=== PATIENT | female | born 1960 | race Caucasian/White ===

== ENCOUNTER 2017-09-03 11:45 | Emergency (ER) | payer OTHER ==
[2017-09-03 12:11] VITALS: BP 124/71
--- NOTE | 2017-09-03 13:18 | RAD ---
INDICATION: Right knee pain after running COMPARISON: None TECHNIQUE: 4 view radiograph of the right knee. FINDINGS: The visualized bones are well-corticated and properly aligned. The joint spaces are properly maintained. There is a small suprapatellar joint effusion.. There is no acute fracture, dislocation or other focal bony abnormality. IMPRESSION: Small joint effusion without radiographically apparent bony abnormality. If the patient's symptoms persist, follow-up imaging is recommended.
--- NOTE | 2017-09-03 13:55 | UC ---
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 PAIN RADIATES FROM FRONT OF KNEE TO BACK. - History of Current Complaint Chief Complaint: UCLowerExtremity Stated Complaint: KNEE PAIN Time Seen by Provider: 09/03/17 12:32 Hx Obtained From: Patient, Family/Hospital Librarian Onset/Duration: Gradual Onset, Lasting Days, Worse Since - TODAY Severity Initially: Mild Severity Currently: Moderate Character: Dull, Aching Aggravating Factor(s): Weight Bearing, Prolonged Standing, Stairs Alleviating Factor(s): Position Associated Signs And Symptoms: Positive: Negative Able to Bear Weight: Yes - WITH PAIN - Risk Factors Septic Arthritis Risk Factor: Negative Gout Risk Factor: Negative - Allergies/Home Medications Allergies/Adverse Reactions: Allergies Allergy/AdvReac Type Severity Reaction Status Date / Time Amoxicillin Allergy Rash Verified 09/03/17 12:08 Codeine Allergy Unknown Verified 09/03/17 12:08 Reaction Details Home Medications: Home Medications NK [No Home Medications Reported] 09/03/17 [History Confirmed 09/03/17] PMH/Surg Hx/FS Hx/Imm Hx Previously Healthy: Yes - Surgical History Surgical History: Yes Surgery Procedure, Year, and Place: bariatric surgery- 1 year ago - Family History Known Family History: Negative: Other - NO JOINT LAXITY - Social History Occupation: Employed Full-time Lives: With Family Alcohol Use: Weekly Substance Use Type: None Smoking Status (MU): Never Smoked Tobacco - Immunization History Most Recent Influenza Vaccination: unknown Review of Systems Constitutional: Negative Skin: Negative Eyes: Negative ENT: Negative Respiratory: Negative Cardiovascular: Negative Gastrointestinal: Negative Genitourinary: Negative Motor: Negative Neurovascular: Negative Musculoskeletal: Arthralgia, Myalgia Neurological: Negative Psychological: Negative Is Patient Immunocompromised?: No All Other Systems Reviewed And Are Negative: Yes Physical Exam Triage Information Reviewed: Yes Appearance: Well-Appearing, Well-Nourished, Pain Distress Vital Signs: Initial Vital Signs Temp 99.1 F 09/03/17 12:04 Pulse 50 09/03/17 12:04 Resp 16 09/03/17 12:04 BP 124/71 09/03/17 12:04 Pulse Ox 96 09/03/17 12:04 Vital Signs Reviewed: Yes Eye Exam: Normal ENT Exam: Normal ENT: Positive: Normal ENT inspection, Hearing grossly normal, Pharynx normal Dental Exam: Normal Neck exam: Normal Neck: Positive: Supple, Nontender, No Lymphadenopathy Respiratory Exam: Normal Respiratory: Positive: Chest non-tender, Lungs clear, Normal breath sounds, No respiratory distress, No accessory muscle use Cardiovascular Exam: Normal Cardiovascular: Positive: RRR, No Murmur, Pulses Normal, Brisk Capillary Refill Abdominal Exam: Normal Musculoskeletal: Positive: ROM Intact, Strength Limited @ - RIGHT KNEE, Edema @ - MILD EDEMA RIGHT KNEE, Other: - POSITIVE LEONILA TEST LOCALIZED TO LATERAL SIDE. NEGATIVE ANTERIOR/POSTERIOR DRAWER TEST Psychological Exam: Normal Skin Exam: Normal Knee Pain Course/Dx - Differential Dx/Diagnosis Differential Diagnosis/HQI/PQRI: Fracture (Closed), Internal Derangement Of Knee , Sprain, Strain Provider Diagnoses: RIGHT KNEE JOINT EFFUSION, INTERNAL INJURY Discharge - Discharge Plan Condition: Stable Disposition: HOME Patient Education Materials: Swollen Knee Joint (ED), Knee Pain (ED) Forms: *Work Release Referrals: Bart Gay MD [Medical Doctor] - Non Staff,Doctor [Primary Care Provider] - Additional Instructions: PHYSICAL THERAPY REFERRAL: You have been prescribed physical therapy. Treatments may include stretching, exercise, application of heat or cold, and other modalities. After an injury, PT can reduce swelling and pain. In recovery, PT is used to restore mobility and strength. Your specific treatment goals are: __x___ Reduction of Swelling (EGS, US, ice as needed) _x____ Pain Reduction (EGS, US, ice as needed) ___x__ TENS Pack Fitting and Instruction Wound Hydrotherapy __x__ Preservation of Mobility ___x__ Druze of Mobility ___x__ Strength Druze ___x__ Work or Sports Hardening This instruction sheet also serves as your PHYSICAL THERAPY REFERRAL! Please take it with you to the therapist, so he/she will be aware of your diagnosis and treatment plan. You may see the physical therapist of your choice for these treatments, but may wish to check with your insurance to be sure the provider you select is covered. It's important to see the doctor to whom you have been referred for follow up.
== END 2017-09-03 13:59 | disposition home or self-care (01) ==
LOC: UCEAST 11:45
DX: M25.461 Effusion, right knee (principal); S89.81XA Other specified injuries of right lower leg, initial encounter; X50.0XXA Overexertion from strenuous movement or load, initial encounter; Y93.9 Activity, unspecified; Y93.02 Activity, running; Y92.9 Unspecified place or not applicable; Y99.9 Unspecified external cause status
CPT/HCPCS: 99213; G0463

== ENCOUNTER 2017-11-21 19:44 | Emergency (ER) | payer BC, OTHER ==
[2017-11-21 19:54] VITALS: BP 140/91
[2017-11-21] MEDS ORDERED: Ondansetron ODT TAB* 4 MG PO ONE (21:07)
[2017-11-21] MEDS ORDERED: Oseltamivir CAP* 75 MG CAP PO ONE (21:09)
--- NOTE | 2017-11-21 21:17 | UC ---
Pablito Dong Gabriel, scribed for Maximino Bonner MD on 11/21/17 at 2030 . FLU HPI - HPI Summary HPI Summary: This patient is a 57 year old F presenting to [facility] [place] with a chief complaint of flu like illness since this morning. The patient rates the pain 4/10 in severity. Patient reports body aches, diarrhea, fever, ROMANO, decreased appetite, light headed on standing, and nausea. Patient denies ear pain and dysuria. 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 Onset/Duration: Lasting Days, Still Present Severity Currently: Moderate Severity Initially: Moderate Pain Intensity: 4 Pain Scale Used: 0-10 Numeric Associated Signs & Symptoms: Positive: Fever, Myalgia, Headache, Diarrhea - Allergy/Home Medications Allergies/Adverse Reactions: Allergies Allergy/AdvReac Type Severity Reaction Status Date / Time amoxicillin Allergy Rash Verified 11/21/17 19:48 codeine Allergy Unknown Verified 11/21/17 19:48 Reaction Details Home Medications: Home Medications Ibuprofen TAB* [Advil TAB*] 200 mg PO Q6H PRN 11/21/17 [History Confirmed ] Multivitamin,Ther and Minerals [Multi-Vitamin Hp/Minerals] 1 cap PO DAILY [History Confirmed 11/21/17] PMH/Surg Hx/FS Hx/Imm Hx Previously Healthy: Yes Other History Of: Negative For: Hepatitis C, Anticoagulant Therapy - Surgical History Surgical History: Yes Surgery Procedure, Year, and Place: bariatric surgery- 2015. removal of foreign body part, 1974 - Family History Known Family History: Negative: Hypertension, Diabetes, Renal Disease, Respiratory Disease, Seizure Disorder, Other - CVA, cance r - Social History Alcohol Use: Weekly Substance Use Type: None Smoking Status (MU): Former Smoker - Immunization History Most Recent Influenza Vaccination: unknown Review of Systems Constitutional: Fever Gastrointestinal: Diarrhea, Nausea Musculoskeletal: Myalgia Neurological: Headache, Other - light headed All Other Systems Reviewed And Are Negative: Yes Physical Exam Triage Information Reviewed: Yes Vital Signs: Initial Vital Signs Temp 100.0 F 11/21/17 19:49 Pulse 83 11/21/17 19:49 Resp 16 11/21/17 19:49 BP 140/91 11/21/17 19:49 Pulse Ox 97 11/21/17 19:49 Vital Signs Reviewed: Yes - Additional Comments General: mildly ill appearing, no pain distress Skin: warm, color reflects adequate perfusion, dry Head: normal Eyes: EOMI, BARBARA ENT: normal Neck: supple, nontender Respiratory: CTA, breath sounds present Cardiovascular: RRR Abdomen: soft, nontender Bowel: present Musculoskeletal: normal, strength/ROM intact Neurological: normal, sensory/motor intact, A&O x3 Psychological: affect/mood appropriate Flu Course/Dx - Course Course Of Treatment: BP noted and advised to follow up with PCP. WILL TREAT INFLUENZA DUE TO SX. F/U PMD; RECHECK IF WORSE. - Differential Dx/Diagnosis Provider Diagnoses: INFLUENZA LIKE ILLNESS. Elevated blood pressure without a previous diagnosis of hypertension Discharge - Discharge Plan Condition: Stable Disposition: HOME Prescriptions: Ondansetron ODT TAB* [Zofran 4 MG Odt TAB*] 4 mg PO Q6H PRN #10 tab.odt PRN Reason: Nausea Oseltamivir CAP* [Tamiflu CAP*] 75 mg PO BID #9 cap Patient Education Materials: Influenza (ED) [place] [facility] [place] [facility] [Outside] Additional Instructions: FOLLOW UP WITH YOUR DOCTOR. GET RECHECKED FOR ANY WORSENING OF YOUR CONDITION OR QUESTIONS OR CONCERNS. Your blood pressure was elevated during today's visit. Please follow up with your primary care provider in 1-2 weeks. The documentation as recorded by the Pablito lancaster Gabriel accurately reflects the service I personally performed and the decisions made by me, Maximino Bonner MD.
== END 2017-11-21 21:30 | disposition home or self-care (01) ==
LOC: UCEAST 19:44
DX: R03.0 Elevated blood-pressure reading, without diagnosis of hypertension (principal); Z87.891 Personal history of nicotine dependence; J11.1 Influenza due to unidentified influenza virus with other respiratory manifestations
CPT/HCPCS: 87502; 99212; A9270-GY; G0463

== ENCOUNTER 2018-09-13 18:49 | Emergency (ER) | payer BC, OTHER ==
--- OUTSIDE RECORDS SUMMARY | 2018-09-13 18:54 | XMS REPORT | Continuity of Care Document ---
:1960 External Reference #:[id number] Author Name Daysi Ansari Care Team Providers Name Role Phone Jennifer Zeng MD Primary Care Physician Unavailable Payers Type Date Identification Numbers Payment Provider Subscriber Policy Number: [id number] [facility] Steph Gutierrez Group Name: [id number] [address] PayID: [id number] [place] [address] Policy Number: [id number] [facility] Steph Gutierrez PayID: [id number] [address] [place] [address] Advance Directives Description No Information Available Problems Date Description Provider Status Onset: 05/11/2017 Obstructive sleep apnea Glenda Steele DNP, RN, Active syndrome 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 Onset: 05/11/2017 Body mass index 30+ - obesity Glenda Steele DNP, RN, 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 Family History Date Family Member(s) Problem(s) Comments General MGP strokes,bowel obstruction;MGM Alzheimer's General PGF strokes, aneurysms; PGM Alzheimer's Father In good health ; had colon cancer, is survivor Father due to Pancreatic Cancer () Mother Sleep Apnea Mother due to Alzheimer's Disease () Mother Alzheimer's ; Siblings 5 Siblings All healthy Social History Type Date Description Comments Sex Unknown Marital Status Lives With Occupation Currently Working Tobacco Use Start: Unknown 1 year ago 01/2014 Quit ETOH Use Occasionally consumes alcohol Tobacco Use Start: Unknown End: Patient is a former smoker Unknown Recreational Drug Use Never Used Drugs Tobacco Use Start: Unknown Light tobacco smoker (10 or fewer cigarettes/day) Smoking Status Reviewed: 09/13/18 Light tobacco smoker (10 or fewer cigarettes/day) Exercise Type/Frequency Exercises regularly Allergies, Adverse Reactions, Alerts Date Description Reaction Status Severity Comments 03/12/2015 Codeine Active 03/12/2015 Amoxicillin Active Rash Medications Medication Date Status Form Strength Qnty SIG Indications Ordering Provider Pravastatin 03/11/20 Active Tablets 40mg 1 tablet Unknown Sodium 15 daily at bedtime Bioflex Active Unknown 00 Multi-Vitamin Active Unknown 00 Evening Active Unknown [place] Oil 00 Atenolol-Chlort 03/11/20 Hx Tablets 50-25mg 1 by mouth Unknown halidone 15 - every day 05/10/20 17 Immunizations Description No Information Available Vital Signs Date Vital Result Comment 09/13/2018 3:46pm Height 63 inches 5'3" Weight 166.00 lb BP Systolic 140 mmHg BP Diastolic 90 mmHg Respiratory Rate 16 /min Body Temperature 98.5 F Pain Level 4 BMI (Body Mass Index) 29.4 kg/m2 07/14/2018 10:11am Height 63 inches 5'3" Weight 165.00 lb Heart Rate 72 /min regular BP Systolic Sitting 158 mmHg Lue reg cuff BP Diastolic Sitting 88 mmHg Lue reg cuff Respiratory Rate 16 /min BMI (Body Mass Index) 29.2 kg/m2 05/11/2017 10:09am Height 63 inches 5'3" Weight 175.00 lb Heart Rate 52 /min BP Systolic Sitting 128 mmHg BP Diastolic Sitting 78 mmHg Respiratory Rate 14 /min O2 % BldC Oximetry 96 % BMI (Body Mass Index) 31.0 kg/m2 07/24/2015 10:10am Heart Rate 65 /min BP Systolic Sitting 124 mmHg BP Diastolic Sitting 70 mmHg O2 % BldC Oximetry 95 % 05/16/2015 10:01am Height 63 inches 5'3" Weight 240.00 lb Heart Rate 49 /min BP Systolic Sitting 120 mmHg BP Diastolic Sitting 68 mmHg Respiratory Rate 20 /min O2 % BldC Oximetry 97 % BMI (Body Mass Index) 42.5 kg/m2 03/12/2015 2:37pm Height 63 inches 5'3" Weight 243.12 lb Heart Rate 82 /min BP Systolic Sitting 112 mmHg BP Diastolic Sitting 54 mmHg Respiratory Rate 20 /min Body Temperature 97.4 F O2 % BldC Oximetry 98 % BMI (Body Mass Index) 43.1 kg/m2 Neck Circumference in inches 15.5 Results Description No Information Available Procedures Date Code Description Status 05/26/2018 44713 Biopsy Skin Lesion Single Completed 05/01/2015 39355 Polysomnography Sleep Staging 4+ Parameters W/Cpap Completed Encounters Type Date Location Provider Dx Diagnosis Office Visit 09/13/2018 [facility] [place], G56.01 Carpal tunnel 3:15p [facility] Peralta syndrome, right upper limb G56.21 Lesion of ulnar nerve, right upper limb Office Visit 07/14/2018 Pul[facility]ology And Glenda G47.33 Obstructive sleep 9:45a [facility] Steele RN, apnea (adult) [facility]- (pediatric) Z68.29 Body mass index (BMI) 29.0-29.9, adult Office Visit 06/02/2018 10:00a [facility] Yessi Oleary MD B07.8 Other viral warts L82.1 Other seborrheic keratosis 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 [Cuauhtemoc] Office Visit 05/26/2018 [facility] Yessi Oleary, D18.01 Hemangioma of skin 7:40a MD and subcutaneous tissue L82.1 Other seborrheic keratosis R21 Rash and other nonspecific skin eruption Office Visit 05/11/2017 [facility] Glenda G47.33 Obstructive sleep 10:00a [facility] Steele RN, apnea (adult) [facility]- (pediatric) E66.9 Obesity, unspecified Z68.31 Body mass index (BMI) 31.0-31.9, adult Office Visit 07/24/2015 10:00a Pul[facility]ology And Jason David G47.33 Obstructive sleep [facility] Kathryn apnea (adult) [facility] (pediatric) I10 Essential (primary) hypertension Office Visit 05/16/2015 10:15a [facility] And Jason David, 327.23 Obstructive Sleep [facility] Apnea Adult & [facility] Pediatric 401.9 Hypertension Unspec Office Visit 03/12/2015 2:30p Pul[facility] Jason David 327.23 Obstructive Sleep [facility] Apnea Adult & [facility] Pediatric 401.9 Hypertension Unspec Plan of Treatment Future Appointment(s):10/16/2018 8:00 am - Con[facility] [place] M.D. at [facility]07/20/2019 8:15 am - Glenda Steele DNP, RN, 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 at [facility]09/13/2018 - Conchis Nj M.D.G56.01 Carpal tunnel syndrome, right upper limbFollow up:Follow up: 9-10 days [id number] Lesion of ulnar nerve, right upper limb
--- NOTE | 2018-09-13 20:48 | UC ---
Lower Extremity/Ankle HPI - HPI Summary HPI Summary: 58 y/o female presents to the urgent care c/o left knee pain s/p injury after her dog jumped into her knee and her leg gave away around 1700pm. Pain is severe w/ weight bearing 8/10. Pain is sharp if she tries to stand up. It radiates to her left hip and then goes down her foot and associated w/ mild swelling around left knee. Pt denies any previous injury. Pt has not taking anything for pain, Pt denies any numbness or tingling sensation over the knee of left leg, fever, calf pain, SOB, chest pain, abdominal pain, N/v/D. 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 Onset/Duration: Sudden Onset, Lasting Hours - 3hrs, Still Present Severity Initially: Moderate Severity Currently: Moderate Pain Intensity: 8 Pain Scale Used: 0-10 Numeric Aggravating Factor(s): Standing, Ambulation Alleviating Factor(s): Rest, Elevation Able to Bear Weight: No - Risk Factors Gout Risk Factors: Negative DVT Risk Factors: Negative Septic Arthritis Risk Factor: Negative - Allergies/Home Medications Allergies/Adverse Reactions: Allergies Allergy/AdvReac Type Severity Reaction Status Date / Time amoxicillin Allergy Rash Verified 09/13/18 19:12 codeine Allergy Unknown Verified 09/13/18 19:12 Reaction Details Home Medications: Home Medications Juliette Peru/Linoleic/Gamoleni [Evening [place] 1,000 mg Sftg] 1,000 mg PO DAILY 09/13/18 [History Confirmed 09/13/18] Rutin/Hesp/Bioflav/C/[id number] [Bioflex Tablet] 1 tab PO DAILY 09/13/18 [ History Confirmed 09/13/18] PMH/Surg Hx/FS Hx/Imm Hx Previously Healthy: Yes Cardiovascular History: Hypertension - diet control Other History Of: Negative For: Hepatitis C, Anticoagulant Therapy - Surgical History Surgical History: Yes Surgery Procedure, Year, and Place: bariatric surgery- 2016. removal of foreign body part, 1974 - Family History Known Family History: Positive: Hypertension Negative: Diabetes, Renal Disease, Respiratory Disease, Seizure Disorder, Other - CVA, cance r - Social History Occupation: Employed Full-time Lives: With Family Alcohol Use: Occasionally Substance Use Type: None Smoking Status (MU): Former Smoker - Immunization History Most Recent Influenza Vaccination: unknown Review of Systems All Other Systems Reviewed And Are Negative: Yes Constitutional: Positive: Negative Skin: Positive: Other - left knee mild swelling s/p injury Eyes: Positive: Negative ENT: Positive: Negative Respiratory: Positive: Negative Cardiovascular: Positive: Negative Gastrointestinal: Positive: Negative Genitourinary: Positive: Negative Motor: Positive: Negative Neurovascular: Positive: Negative Musculoskeletal: Positive: Decreased ROM - left knee, Other: - left knee pain s/ p injury Neurological: Positive: Negative Psychological: Positive: Negative Is Patient Immunocompromised?: No Physical Exam - Summary Physical Exam Summary: Vital Signs Reviewed: Yes General: well developed, well nourished female sitting in the examining table w/ o any apparent distress Eyes: Positive: Conjunctiva Clear - PERRLA, EOMI, fundi grossly normal ENT: Positive: Normal ENT inspection, Hearing grossly normal, Pharynx normal, TMs normal Neck: Positive: Supple, Nontender, No Lymphadenopathy Respiratory: Positive: Chest nontender, Lungs clear, Normal breath sounds, No respiratory distress Cardiovascular: Positive: RRR, No Murmur, Pulses Normal, Brisk Capillary Refill Abdomen Description: Positive: Nontender, No Organomegaly, Soft. Negative: CVA Tenderness (R), CVA Tenderness (L) Bowel Sounds: Positive: Present Musculoskeletal: Positive: Strength Intact, No Edema, Left Knee: Pt is unable to bear weight. No surface trauma, mild soft tissue swelling around patella, no obvious effusion. No overlying erythema or warmth. The L knee is without obvious asymmetry or deformity when compared with the R knee. Decreased ROM of LF knee due to pain. tenderness to palpation of the patella, no effusion or ballottement. tenderness over the infrapatellar tendon. Point tenderness over the medial joint line, No tenderness over the medial or lateral tibial plateaus. No tenderness over the proximal fibular head, No tenderness, fullness or mass of the popliteal fossa. No quadriceps tenderness. No laxity of the ACL. PCL, MCL, or LCL. no collateral ligament laxity to valgus or varus stress. Negative Claudia/Drawer sign. Ashley unable to perform due to pain. Distal motor and neurovascular status intact. Neurological Exam: Normal Psychological Exam: Normal Skin Exam: Normal Triage Information Reviewed: Yes Vital Signs: Initial Vital Signs Temp 100.0 F 09/13/18 19:07 Pulse 72 09/13/18 19:07 Resp 16 09/13/18 19:07 BP 141/84 09/13/18 19:07 Pulse Ox 100 09/13/18 19:07 Lower Extremity Course/Dx - Course Course Of Treatment: 58 y/o female presents to the urgent care c/o left knee pain s/p injury after her dog jumped into her knee and her leg gave away around 1700pm. Pain is severe w/ weight bearing 05/12. Pain is sharp if she tries to stand up. It radiates to her left hip and then goes down her foot and associated w/ mild swelling around left knee. Pt denies any previous injury. Pt has not taking anything for pain, Pt denies any numbness or tingling sensation over the knee of left leg, fever, calf pain, SOB, chest pain, abdominal pain, N/ v/D. hx obtained. LF knee X-ray ordered. Impression:No acute osseous injury, Positive Osteoarthritis seen over the patella and a small needle observed over the lateral aspect of the distal thigh as incidental finding. Pt states she got a sawing needle in her thigh about 20 years ago and only half of the needle was taken out, the other half still present, but it has never bother her. Pt probrably w/ a knee prain. Pt's knee immobilized w/ la bandage and Knee immobilizer by the Nurse. and advised to avoid weight bearing by using the cruthes she has at home.Advised RICE. Avoid strenuous exercise or standing for long period of time. Pt advised to f/u with Orthopedic Dr Hooper in 2-3 days for further evaluation and treatment. D/C instructions explained. Pt understood and agreed with D/C instructions. - Differential Dx/Diagnosis Differential Diagnosis/HQI/PQRI: Arthritis, Contusion, Fracture (Closed), Sprain , Strain, Tendonitis Provider Diagnosis: Left knee pain, Left knee sprain, Osteoarthritis, Elevated BP without diagnosis of hypertension Discharge - Sign-Out/Discharge Documenting (check all that apply): Patient Departure - d/c home All imaging exams completed and their final reports reviewed: No - Discharge Plan Condition: Stable Disposition: HOME Patient Education Materials: Knee Sprain (ED), Osteoarthritis (ED), Low-Sodium Diet (ED) Forms: *Work Release Referrals: Jennifer Zeng MD [Primary Care Provider] - 2 Days Rodrick Hooper MD [Medical Doctor] - 2 Days Additional Instructions: 1-Please take Ibuprofen PO q6-8hrs after meals as directed to alleviate pain and swelling. Start tomorrow night since you were given Toradol IM inj today. In the meantime you can take Tylenol PO for pain. 2-Please apply ice, keep your knee immobilized with the Knee inmobilizer. Use the crutches you have at home to avoid weight bearing. Keep you leg elevated 3- Please f/u with Orthopedic Dr Hooper in 2-3 days for further evaluation and treatment. 4- Your BP is elevated today. please decrease salt in your diet, monitor BP and if it continues to be elevated please f/u with your PCP for further management 5- final radiology report still pending, you will be notified tomorrow. - Billing Disposition and Condition Condition: STABLE Disposition: Home
[2018-09-13] MEDS ORDERED: Ketorolac INJ* 30 MG/ML 1 ML VIAL IM ONE (21:01)
[2018-09-13 22:33] VITALS: BP 124/78
--- NOTE | 2018-09-14 09:59 | UC ---
- Progress Note Progress Note: X-ray reports for the left knee from September 13, 2018 comes back with a reading of joint effusion mild osteoarthritis and an incidental needle fragment within the hamstring musculature above the knee joint. The provider's interpretation did not mention these items. In the report from September 13, 2018. The plan is to follow-up with orthopedics. I called the patient and left a message asking her to call us back here to urgent care to discuss the report. As long as the patient does follow-up with orthopedics everything is taking care of that he is not following up with orthopedic she does need to do that. Course/Dx - Diagnoses Provider Diagnoses: Left knee pain, Left knee sprain, Osteoarthritis, Elevated BP without diagnosis of hypertension Discharge - Sign-Out/Discharge Documenting (check all that apply): Patient Departure All imaging exams completed and their final reports reviewed: Yes - Discharge Plan Condition: Stable Disposition: HOME Patient Education Materials: Knee Sprain (ED), Osteoarthritis (ED), Low-Sodium Diet (ED) Forms: *Work Release Referrals: Rodrick Hooper MD [Medical Doctor] - 2 Days Jennifer Zeng MD [Primary Care Provider] - 2 Days Additional Instructions: 1-Please take Ibuprofen PO q6-8hrs after meals as directed to alleviate pain and swelling. Start tomorrow night since you were given Toradol IM inj today. In the meantime you can take Tylenol PO for pain. 2-Please apply ice, keep your knee immobilized with the Knee inmobilizer. Use the crutches you have at home to avoid weight bearing. Keep you leg elevated 3- Please f/u with Orthopedic Dr Hooper in 2-3 days for further evaluation and treatment. 4- Your BP is elevated today. please decrease salt in your diet, monitor BP and if it continues to be elevated please f/u with your PCP for further management 5- final radiology report still pending, you will be notified tomorrow. - Billing Disposition and Condition Condition: STABLE Disposition: Home
--- NOTE | 2018-09-14 10:52 | UC ---
- Progress Note Progress Note: Nursing this cussed with the patient the x-ray results and the patient reports she has a follow-up scheduled this week with Dr. Hooper orthopedics. Course/Dx - Diagnoses Provider Diagnoses: Left knee pain, Left knee sprain, Osteoarthritis, Elevated BP without diagnosis of hypertension Discharge - Sign-Out/Discharge Documenting (check all that apply): Patient Departure All imaging exams completed and their final reports reviewed: Yes - Discharge Plan Condition: Stable Disposition: HOME Patient Education Materials: Knee Sprain (ED), Osteoarthritis (ED), Low-Sodium Diet (ED) Forms: *Work Release Referrals: Rodrick Hooper MD [Medical Doctor] - 2 Days Jennifer Zeng MD [Primary Care Provider] - 2 Days Additional Instructions: 1-Please take Ibuprofen PO q6-8hrs after meals as directed to alleviate pain and swelling. Start tomorrow night since you were given Toradol IM inj today. In the meantime you can take Tylenol PO for pain. 2-Please apply ice, keep your knee immobilized with the Knee inmobilizer. Use the crutches you have at home to avoid weight bearing. Keep you leg elevated 3- Please f/u with Orthopedic Dr Hooper in 2-3 days for further evaluation and treatment. 4- Your BP is elevated today. please decrease salt in your diet, monitor BP and if it continues to be elevated please f/u with your PCP for further management 5- final radiology report still pending, you will be notified tomorrow. - Billing Disposition and Condition Condition: STABLE Disposition: Home
== END 2018-09-13 22:31 | disposition home or self-care (01) ==
LOC: UCEAST 18:49
DX: S83.92XA Sprain of unspecified site of left knee, initial encounter (principal); Y93.89 Activity, other specified; Y92.9 Unspecified place or not applicable; M17.12 Unilateral primary osteoarthritis, left knee; R03.0 Elevated blood-pressure reading, without diagnosis of hypertension; I10 Essential (primary) hypertension; Z88.5 Allergy status to narcotic agent; Z88.0 Allergy status to penicillin; Z87.891 Personal history of nicotine dependence
CPT/HCPCS: 96372; 99213; G0463; J1885

== ENCOUNTER 2018-10-06 09:03 | Day surgery (SDC) | payer BC, OTHER ==
--- NOTE | 2018-09-21 15:55 | HP ---
PREOPERATIVE HISTORY AND PHYSICAL: DATE OF SURGERY/ADMISSION: 10/06/18 DATE OF OFFICE VISIT/ENCOUNTER: 09/13/18 ATTENDING SURGEON: Conchis Nj MD.* (DICTATED BY RUBIO LOVING) PROCEDURE: Right wrist carpal tunnel release, ulnar nerve decompression at the wrist and elbow. CHIEF COMPLAINT: Numbness and tingling in right hand. HISTORY OF PRESENT ILLNESS: This is a 58-year-old female who complains of numbness and tingling in her right hand. This has been ongoing for 20 years. It has gradually gotten worse. She wears braces at night, but that is not helping as much as it used to. She feels a lot of numbness in her forearm on the ulnar aspect and also numbness and tingling in all of her fingers. She denies any neck pain. She has consented to surgical intervention for this problem. PAST MEDICAL HISTORY: Sleep apnea with a CPAP. PAST SURGICAL HISTORY: 1. Right leg surgery to remove a foreign object. 2. Gastric bypass. 3. Left foot surgery. CURRENT MEDICATIONS: 1. Bioflex. 2. Evening primrose oil. 3. Multivitamin. ALLERGIES: AMOXICILLIN causes hives. CODEINE, reaction is unknown. FAMILY MEDICAL HISTORY: Pancreatic cancer, Alzheimer's, hypertension. 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 She is a former smoker. She quit about 5 years ago. Prior to that, she smoked a half to a pack per day for 30 plus years. She denies recreational drug use. She drinks alcohol on rare occasion. REVIEW OF SYSTEMS: Negative for general, cephalic, cardiovascular, respiratory , GI, , other musculoskeletal, integumentary, endocrine, neurologic, and hematologic symptoms. Infections disease is negative for MRSA, hepatitis C, HIV. PHYSICAL EXAMINATION GENERAL: A well-developed, well-nourished, 58-year-old female, in no acute distress. VITAL SIGNS: Height 5 feet 3 inches, weight 166 pounds, blood pressure 126/80, pulse rate 72. HEENT: Normocephalic, atraumatic. Pupils are equal, round, and reactive to light and accommodation. Extraocular movements are intact. NECK: Supple. No palpable lymph nodes. Throat is clear. PULMONARY: Lungs are clear to auscultation bilaterally. No wheezes, rales, or rhonchi. CARDIOVASCULAR: Regular rate and rhythm. S1 and S2. No murmurs, rubs, or gallops. No edema. ABDOMEN: Positive bowel sounds, soft, and nontender. NEUROLOGIC: Alert and oriented x3. Cranial nerves II through XII are intact. Sensation is intact to light touch. MUSCULOSKELETAL: On exam of her right upper extremity, she has marked thenar wasting on the right compared to the left. She has a lot of weakness with thumb abduction, a little bit of weakness with finger abduction, both on the right. She has decreased sensation in her median and ulnar nerve distribution on the right. She has a positive Tinel sign at the ulnar nerve, elbow, and wrist and a positive Tinel's at the median nerve. IMPRESSION: Right carpal tunnel syndrome and ulnar nerve compression at the elbow and the wrist. PLAN: The patient is scheduled to undergo a right wrist carpal tunnel release and an ulnar nerve decompression at the wrist and elbow with Dr. Nj on . She will return to the office 10 days postop for followup and suture removal. A prescription for Delano was e-scribed to the patient's pharmacy for postoperative pain management. RUBIO LOVING [id number]/[facility] #: [id number] MTDVipul
[~2018-10-06 09:03] MED LIST: Buffered Lidocaine 0.9% SYRIN* 5 ML/SYR SYRINGE INTRADERM ONE; Dexamethasone IV* 4 MG/ML 1 ML (4 MG) IV SLOW PU ONE; Dexamethasone IV* 4 MG/ML 1 ML (4 MG) ONE; Famotidine IV* 10 MG/ML 2 ML (20 mg) IV ONE; Famotidine IV* 10 MG/ML 2 ML (20 mg) ONE; Lactated Ringers 1000 ML Bag* 1,000 ML IV SCH
[2018-10-06] MEDS ORDERED: Clindamycin 900 MG/D5W BAG(*) 900 MG/50 ML BAG IVPB ONE (09:11)
[2018-10-06] MEDS ORDERED: Lidocaine 1% INJ* 10 MG/ML 30 ML SDV ONE (09:34)
[2018-10-06] MEDS ORDERED: Lidocaine 2% PF * 5 ML VIAL ONE (09:53)
[2018-10-06] MEDS ORDERED: Propofol* 10 MG/ML 20 ML BTL ONE (09:53)
[2018-10-06] MEDS ORDERED: fentaNYL* 50 MCG/ML 2 ML VIAL (100 MCG VIAL) ONE (09:58)
[2018-10-06] MEDS ORDERED: Midazolam* 1 MG/ML 2 ML VIAL (2 MG) ONE (09:58)
[2018-10-06] MEDS ORDERED: DiMENhydriNATE IV* 50 MG/ML VIAL IV PUSH PRN (10:10)
[2018-10-06] MEDS ORDERED: Naloxone* 0.4 MG/ML 1 ML VIAL IV PRN (10:10)
[2018-10-06] MEDS ORDERED: oxyCODONE/Acetamin 5/325 MG* TAB PO PRN (10:10)
[2018-10-06] MEDS ORDERED: fentaNYL* 50 MCG/ML 2 ML VIAL (100 MCG VIAL) IV PRN (10:10)
[2018-10-06] MEDS ORDERED: HYDROcodone/ACETAMIN 5-325 MG* 1 TAB PO PRN (10:10)
[2018-10-06] MEDS ORDERED: Ondansetron INJ* 2 MG/ML VIAL ONE (11:13)
[2018-10-06] MEDS ORDERED: HYDROcodone/ACETAMIN 5-325 MG* 1 TAB ONE (11:49)
[2018-10-06] MEDS ORDERED: DiMENhydriNATE IV* 50 MG/ML VIAL ONE (12:02)
[2018-10-06 13:04] VITALS: BP 111/68
--- NOTE | 2018-10-06 21:03 | OP ---
DATE OF OPERATION: 10/06/18 - [facility] DATE OF : [birth year] SURGEON: Conchis Nj MD PAINTER HELPER SIGN: RUBIO Camacho ANESTHESIA: Local MAC. PRE-OP DIAGNOSES: Right carpal tunnel syndrome and ulnar nerve compression at the right elbow and right wrist. POST-OP DIAGNOSES: Right carpal tunnel syndrome and ulnar nerve compression at the right elbow and right wrist. OPERATIVE PROCEDURE: Right carpal tunnel release and ulnar nerve decompression at the wrist and elbow. ESTIMATED BLOOD LOSS: Zero. TOURNIQUET TIME: Approximately 30 minutes. INDICATION FOR PROCEDURE: Steph is a 58-year-old female who has numbness and tingling in the median and ulnar nerve distribution of the right hand. She presents for ulnar nerve decompression of the wrist and elbow, as she has a positive Tinel's sign at both sites and also for right carpal tunnel release. DESCRIPTION OF PROCEDURE: The patient was brought to the operating room and was given a sedation anesthetic and a local infiltration of total of 20 cc of 1 % plain lidocaine, 10 at the wrist and 10 at the elbow. Skin of her right upper extremity was prepped and draped in the usual sterile fashion. The upper extremity was exsanguinated and the tourniquet elevated to 250 mmHg. A curvilinear incision was made centered between the medial epicondyle and the tip of the olecranon process. We dissected bluntly through the subcutaneous tissue down to the ulnar nerve just proximal to the cubital tunnel. The nerve was carefully dissected out proximally and distally. The fascia of the FCU muscle was quite thickened and was divided completely releasing the nerve distally. Proximally, there was a thickened band of the medial intermuscular septum and this was also divided. The nerve was in good condition. The wound was irrigated and the subcutaneous tissue closed with 2-0 Polysorb. The skin edges were reapproximated with rob. Next, a longitudinal incision was made in the palm in line with the ring finger and then in zigzag fashion across the wrist crease, dissected sharply through the subcutaneous tissue down to the transverse carpal ligament. The ligament was divided sharply with the knife and then more proximally with the scissors. This nerve was dissected free from the surrounding tissue and there was an area of moderate compression at the midportion of the ligament. The ulnar nerve was then located in the distal forearm proximal to the wrist crease and then was carefully dissected out through Guyon's canal. There was a very thickened portion of Guyon's canal that was compressing the nerve. The wound was irrigated and skin edges reapproximated with 4-0 nylon suture. The wound was dressed with Xeroform, 4x4, Webril, and Jarrod wrap. The patient tolerated the procedure well and was brought to the Recovery in good condition. [id number]/[facility] #: [id number] PINKY
== END 2018-10-06 12:58 | disposition home or self-care (01) ==
LOC: OREAST 09:03
PROVIDERS: ATTEND Orthopaedic Surgery
DX: G56.01 Carpal tunnel syndrome, right upper limb (principal); G56.21 Lesion of ulnar nerve, right upper limb; G47.33 Obstructive sleep apnea (adult) (pediatric)
CPT/HCPCS: J1100; J1240; J2250; J2405; J2704; J3010

== ENCOUNTER 2019-02-08 17:16 | Emergency (ER) | payer BC, OTHER ==
--- OUTSIDE RECORDS SUMMARY | 2019-02-08 17:21 | XMS REPORT | Continuity of Care Document ---
:1960 External Reference #:[id number] Author Name Deisy Pappas Care Team Providers Name Role Phone Jennifer Zeng MD Primary Care Physician Unavailable Payers Date Identification Numbers Payment Provider Subscriber Policy Number: [id number] [facility] Steph Gutierrez Group Name: [id number] [address] [address] PayID: [id number] [place] [id number] Policy Number: [id number] [facility] Steph Gutierrez PayID: [id number] [address] [place] [address] Advance Directives Description No Information Available Problems Active Problems Provider Date Obstructive sleep apnea syndrome Glenda Steele DNP, RN, IMPORT CLERK- Onset: 06/2017 Body mass index 30+ - obesity Glenda Steele DNP, RN, IMPORT CLERK-BC Onset: 2016 Current tear of medial cartilage Adrian Ferrer MD Onset: 09/15/2018 AND/OR meniscus of knee Knee joint effusion Adrian Ferrer MD Onset: 09/15/2018 Synovial cyst of popliteal space Adrian Ferrer MD Onset: 11/17/2018 Family History Date Family Member(s) Observation Comments General MGP strokes,bowel obstruction;MGM Alzheimer's General [...] (10 or fewer cigarettes/day) Smoking Status Reviewed: 01/17/19 Light tobacco smoker (10 or fewer cigarettes/day) Exercise Type/Frequency Exercises regularly Allergies, Adverse Reactions, Alerts Active Allergies Reaction Severity Comments Date Codeine 03/12/2015 Amoxicillin Rash 03/12/2015 Medications Active Medications SIG Qnty Indications Ordering Provider Date Oxycodone HCL 1 tabs by mouth 10tabs Adrian Ferrer MD 01/04/2019 5mg every 4-6 hours Tablets as needed Tramadol HCL 1 tablet po bid 15tabs Adrian Ferrer MD 12/26/2018 50mg Tablets Pravastatin Sodium 1 tablet daily at Unknown 03/11/2015 40mg bedtime Tablets Bioflex Unknown Multi-Vitamin Unknown Evening [place] Oil Unknown History Medications Armstrong one tab by mouth 20tabs Conchis Nj, 09/21/2018 - 5-325mg every 4-6 hours M.D. 12/24/2018 Tablets as needed pain Atenolol-Chlorthal 1 by mouth every Unknown 03/11/2015 - idone day 05/10/2017 50-25mg Tablets Medications Administered in Office Medication SIG Qnty Indications Ordering Provider Date Triamcinolone (Kenalog) Adrian Ferrer MD 11/17/2018 Injection Immunizations Description No Information Available Vital Signs Date Vital Result Comment 01/17/2019 2:43pm Height 64 inches 5'4" Weight 170.00 lb BP Systolic 134 mmHg BP Diastolic 88 mmHg Body Temperature 98.7 F Pain Level 1 BMI (Body Mass Index) 29.2 kg/m2 12/25/2018 2:19pm Height 63 inches 5'3" BP Systolic 148 mmHg BP Diastolic 110 mmHg Respiratory Rate 15 /min Body Temperature 98.8 F Pain Level 9 11/17/2018 9:35am Height 63 inches 5'3" Weight 165.00 lb Patient stated Heart Rate 60 /min BP Systolic 124 mmHg BP Diastolic 90 mmHg Respiratory Rate 14 /min Pain Level 4 BMI (Body Mass Index) 29.2 kg/m2 11/13/2018 8:07am Height 63 inches 5'3" Heart Rate 60 /min BP Systolic 124 mmHg BP Diastolic 80 mmHg Respiratory Rate 12 /min Pain Level 1 10/30/2018 3:03pm Height 63 inches 5'3" Weight 172.00 lb Heart Rate 68 /min Respiratory Rate 15 /min Body Temperature 98.3 F Pain Level 5 BMI (Body Mass Index) 30.5 kg/m2 10/16/2018 8:14am Height 63 inches 5'3" Weight 172.00 lb BP Systolic 122 mmHg BP Diastolic 78 mmHg Body Temperature 98.7 F Pain Level 1 BMI (Body Mass Index) 30.5 kg/m2 09/15/2018 8:24am Height 63 inches 5'3" Weight 166.00 lb BP Systolic 126 mmHg BP Diastolic 80 mmHg Respiratory Rate 15 /min Body Temperature 97.9 F Pain Level 6 BMI (Body Mass Index) 29.4 kg/m2 09/13/2018 3:46pm Height 63 inches 5'3" Weight [...] Information Available Procedures Date Code Description Status 01/04/2019 51391 Arthroscopy,Knee,Meniscectomy Medial Or Lateral Completed 01/04/2019 01685 Arthroscopy,Knee,Meniscectomy Medial Or Lateral Completed 11/17/2018 98436 Inject/Drain Joint/Bursa Major W/O US Completed 10/06/2018 32665 Carpal Tunnel Release Completed 10/06/2018 97532 Carpal Tunnel Release Completed 10/06/2018 63914 Neuroplasty &/Or Transposition; Ulnar Nerve AT Elbow Completed 10/06/2018 76067 Neuroplasty &/Or Transposition; Ulnar Nerve AT Elbow Completed 05/26/2018 76290 Biopsy Skin Lesion Single Completed 05/01/2015 78023 Polysomnography Sleep Staging 4+ Parameters W/Cpap Completed Encounters Type Date Location Provider Dx Diagnosis Office Visit 12/25/2018 Rosario Ferrer, S83.222A Prph tear of 2:15p [facility], current injury, l knee, init M71.22 Synovial cyst of popliteal space [Root], left knee Office Visit 11/17/2018 9:30a Rosario Ferrer S83.222A Prph tear of [facility] phillip Moran meniscus, current injury, l knee, init M71.22 Synovial cyst of popliteal space [Root], left knee Office Visit 10/30/2018 3:30p Rosario Ferrer MD M25.562 [facility] in [facility] left knee M25.462 Effusion, left knee Office Visit 09/15/2018 8:00a Rosario Ferrer S83.222A Prph tear of [facility]ip Moran meniscus, current injury, l knee, init M25.462 Effusion, left knee M25.562 Pain in left knee Office Visit 09/13/2018 3:15p Orthopedic Conchis Nj G56.01 Carpal tunnel [facility] syndrome, right [facility] 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 [Cuauhtemoc] Office Visit 05/26/2018 [facility] Dermatology Yessi Oleary, D18.01 Hemangioma of skin 7:40a MD and subcutaneous tissue L82.1 Other seborrheic keratosis R21 Rash and other nonspecific skin eruption Office Visit 05/11/2017 Pulmonology And Glenda G47.33 Obstructive sleep 10:00a [facility] Steele RN, apnea (adult) [facility] IMPORT CLERK-BC (pediatric) E66.9 Obesity, unspecified Z68.31 Body mass index (BMI) 31.0-31.9, adult Office Visit 07/24/2015 10:00a Pulmonology And Jason David G47.33 Obstructive sleep [facility] apnea (adult) [facility] (pediatric) I10 Essential (primary) hypertension Office Visit 05/16/2015 10:15a Pulmonology And Jason David, 327.23 Obstructive Sleep [facility] Apnea Adult & [facility] Pediatric 401.9 Hypertension Unspec Office Visit 03/12/2015 2:30p Pulmonology And Jason David, 327.23 Obstructive Sleep [facility] Apnea Adult & [facility] Pediatric 401.9 Hypertension Unspec Plan of Treatment Future Appointment(s):03/02/2019 8:00 am - Adrian Ferrer MD at [facility]07/20/2019 8:15 am - Glenda Steele DNP, RN, IMPORT CLERK-BC at [facility]
[2019-02-08 17:34] VITALS: BP 150/97
--- NOTE | 2019-02-08 17:49 | UC ---
Lower Extremity/Ankle HPI - HPI Summary HPI Summary: 58 yo female presents with LEFT lower leg swelling and calf pain for the last 5 days. Over the last 2 days has been noticing shortness of breath with exertion and feeling a discomfort in her chest with this. She had left knee meniscus repair about 1 month ago and is unsure what type of anesthesia she had, but does not believe it was general anesthesia. She does not take any prescription medications and denies any past medical history. No personal or fam hx of blood clots. 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 Onset/Duration: Sudden Onset Severity Initially: Mild Severity Currently: Mild Pain Intensity: 2 Pain Scale Used: 0-10 Numeric - Allergies/Home Medications Allergies/Adverse Reactions: Allergies Allergy/AdvReac Type Severity Reaction Status Date / Time amoxicillin Allergy Intermediate Hives Verified 02/08/19 18:59 codeine Allergy Unknown Unknown Verified 02/08/19 18:59 Reaction Details Home Medications: Home Medications B12/Iodin/Mag/Zinc/Alexandra/[id number] [Adrenoid Capsule] 1 each PO EVERY OTHER DAY 06/21 [History Confirmed 02/08/19] PMH/Surg Hx/FS Hx/Imm Hx - Additional Past Medical History Additional PMH: None Other History Of: Negative For: Hepatitis C, Anticoagulant Therapy - Surgical History Surgical History: Yes Surgery Procedure, Year, and Place: Attempted removal of foreign body (sewing machine needle) left upper thigh [facility]. bariatric surgery- 2016 [place], LT FOOT SESAMOID REMOVAL. left knee surgery - Family History Known Family History: Positive: Hypertension Negative: Diabetes, Renal Disease, Respiratory Disease, Seizure Disorder, Other - CVA, cance r - Social History Lives: With Family Alcohol Use: Occasionally Alcohol Amount: 1 DRINK/MONTH Substance Use Type: None Smoking Status (MU): Former Smoker Amount Used/How Often: <1 PPD FOR 30 YRS Length of Time of Smoking/Using Tobacco: 30 YRS Have You Smoked in the Last Year: No When Did the Patient Quit Smoking/Using Tobacco: 2012 - Immunization History Most Recent Influenza Vaccination: unknown Review of Systems All Other Systems Reviewed And Are Negative: Yes Constitutional: Positive: Negative Skin: Positive: Negative Respiratory: Positive: Shortness Of Breath Cardiovascular: Positive: Negative Gastrointestinal: Positive: Negative Neurovascular: Positive: Negative Musculoskeletal: Positive: Other: - Left calf pain and swelling Neurological: Positive: Negative Psychological: Positive: Negative Physical Exam - Summary Physical Exam Summary: GENERAL: NAD. WDWN. No pain distress. SKIN: No rashes, sores, lesions, or open wounds. NECK: Supple. Nontender. No lymphadenopathy. CHEST: CTAB. No r/r/w. No accessory muscle use. Breathing comfortably and in no distress. CV: RRR. Without m/r/g. Pulses intact. Cap refill <2seconds MSK: LEFT LOWER LEG: Moderate edema at left calf with TTP at posterior lower leg. Positive Jelly sign. FROM at left knee. Strength 5/5. NEURO: Alert. PSYCH: Age appropriate behavior. Triage Information Reviewed: Yes Vital Signs: Initial Vital Signs Temp 98.8 F 02/08/19 17:29 Pulse 64 02/08/19 17:29 Resp 16 02/08/19 17:29 BP 150/97 02/08/19 17:29 Pulse Ox 99 02/08/19 17:29 Vital Signs Reviewed: Yes Lower Extremity Course/Dx - Course Course Of Treatment: Given pt's history of recent surgery and exam today there is a high suspicion for DVT and/or PE - therefore I have recommended pt be further evaluated in the ED. She is currently in no distress and vitals are stable, therefore will drive her. - Differential Dx/Diagnosis Provider Diagnosis: Pain and swelling of left lower leg, BURR (dyspnea on exertion) Discharge - Sign-Out/Discharge Documenting (check all that apply): Patient Departure All imaging exams completed and their final reports reviewed: No Studies - Discharge Plan Condition: Stable Disposition: HOME-RECOMMEND TO ED Referrals: Jennifer Zeng MD [Primary Care Provider] - Additional Instructions: Please go to the ER for further evaluation of your leg swelling, calf pain, and shortness of breath - Billing Disposition and Condition Condition: STABLE Disposition: Home-Recommend to ED - Attestation Statements Provider Attestation: Per institutional requirements, I have reviewed the chart, however, I was not consulted specifically or made aware of this patient by the midlevel provider. I did not personally evaluate, interact with , or disposition this patient.
== END 2019-02-08 18:03 | disposition home health service (06) ==
LOC: UCEAST 17:16
DX: M79.89 Other specified soft tissue disorders (principal); R06.09 Other forms of dyspnea; Z88.0 Allergy status to penicillin; Z88.8 Allergy status to other drugs, medicaments and biological substances; Z82.49 Family history of ischemic heart disease and other diseases of the circulatory system; Z87.891 Personal history of nicotine dependence
CPT/HCPCS: 99212; G0463

== ENCOUNTER 2019-02-08 18:53 | Emergency (ER) | payer BC, OTHER ==
--- NOTE | 2019-02-08 21:57 | ED ---
Lower Extremity - HPI Summary HPI Summary: 58-year-old female presents with left calf pain for the past week. She had meniscus repair a couple weeks ago. She states she normally swims at least a mile a day. States that she started having the pain in her left calf while swimming. A couple days later she develop short of breath when she was swimming that lasted a couple minutes. States she felt a little chest tightness in the center of her chest earlier today. no chest pain with exertion. She states she was short of breath earlier today. She denies any shortness of breath with walking. There is some swelling to her legs. Denies any cardiac history. Does have a history of high blood pressure. Denies any family history of blood clots or cardiac disease. was a smoker. Denies any recent travel. 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 Intensity: 2 - Allergies/Home Medications Allergies/Adverse Reactions: Allergies Allergy/AdvReac Type Severity Reaction Status Date / Time amoxicillin Allergy Intermediate Hives Verified 02/08/19 18:59 codeine Allergy Unknown Unknown Verified 02/08/19 18:59 Reaction Details PMH/Surg Hx/FS Hx/Imm Hx Endocrine/Hematology History: Denies: Hx Anticoagulant Therapy, Hx Bone Marrow Disease, Hx Diabetes, Hx Sickle Cell Disease, Hx Anemia Cardiovascular History: Reports: Hx Hypertension - ON MEDS Denies: Hx Pacemaker/ICD Respiratory History: Reports: Hx Sleep Apnea - 5 YR HX GI History: Reports: Other GI Disorders - GASTRIC SLEEVE 2016 Musculoskeletal History: Reports: Hx Arthritis - OSTEOARTHRITIS KNEES, Other Musculoskeletal History - RIGHT CTS Sensory History: Reports: Hx Contacts or Glasses - GLASSES Denies: Hx Cataracts, Hx Glaucoma, Hx Hearing Aid Opthamlomology History: Reports: Hx Contacts or Glasses - GLASSES Denies: Hx Cataracts, Hx Glaucoma Neurological History: Reports: Hx Migraine - OCCASIONAL Psychiatric History: Denies: Hx Panic Disorder - Surgical History Surgery Procedure, Year, and Place: Attempted removal of foreign body (sewing machine needle) left upper thigh 1974 [facility]. bariatric surgery- 2016 [place], LT FOOT SESAMOID REMOVAL. left knee surgery Hx Anesthesia Reactions: No Infectious Disease History: No Infectious Disease History: Denies: Traveled Outside the [place] in Last 30 Days - Family History Known Family History: Positive: Hypertension Negative: Diabetes, Renal Disease, Respiratory Disease, Seizure Disorder, Other - CVA, cance r - Social History Alcohol Use: Occasionally Alcohol Amount: 1 DRINK/MONTH Substance Use Type: Reports: None Smoking Status (MU): Former Smoker Amount Used/How Often: <1 PPD FOR 30 YRS Length of Time of Smoking/Using Tobacco: 30 YRS Have You Smoked in the Last Year: No Review of Systems Negative: Fever Positive: Chest Pain Positive: Shortness Of Breath. Negative: Cough Positive: Myalgia - left leg pain All Other Systems Reviewed And Are Negative: Yes Physical Exam Triage Information Reviewed: Yes Vital Signs On Initial Exam: Initial Vitals Temp Pulse Resp BP Pulse Ox 99.3 F 64 18 155/106 95 02/08/19 18:54 02/08/19 18:54 02/08/19 18:54 02/08/19 18:54 02/08/19 18:54 Vital Signs Reviewed: Yes Appearance: Positive: Well-Appearing Skin: Positive: Warm, Dry Head/Face: Positive: Normal Head/Face Inspection Eyes: Positive: Normal, Conjunctiva Clear ENT: Positive: Pharynx normal Respiratory/Lung Sounds: Positive: Clear to Auscultation, Breath Sounds Present Cardiovascular: Positive: Normal, RRR Abdomen Description: Positive: Nontender, Soft Bowel Sounds: Positive: Present Musculoskeletal: Positive: Strength/ROM Intact - left leg, Other - tenderness in left calf, good pulses, edema noted to legs,. Negative: Jelly Sign Left Neurological: Positive: Normal Psychiatric: Positive: Normal Diagnostics - Vital Signs Vital Signs Temp Pulse Resp BP Pulse Ox 02/08/19 21:27 98.6 F 60 16 133/75 99 02/08/19 18:54 99.3 F 64 18 155/106 95 - Laboratory Result Diagrams: 02/08/19 22:04 02/08/19 22:04 Lab Statement: Any lab studies that have been ordered have been reviewed, and results considered in the medical decision making process. - Radiology chest Radiology Interpretation Completed By: ED Physician Summary of Radiographic Findings: nad - Ultrasound No standard instances Ultrasound Interpretation Completed By: Radiologist Summary of Ultrasound Findings: IMPRESSION: 1. No evidence of left lower extremity DVT. 2. Small amount of subcutaneous fluid in area of pain in posterior left upper. calf. Small amount of fluid also noted in the medial left calf. - EKG No standard instances Cardiac Rate: Bradycardia EKG Rhythm: Sinus Bradycardia Summary of EKG Findings: sinus bradycardia Re-Evaluation - Re-Evaluation First Eval Re-Evaluation Time: 23:27 Comment: no chest pain or shortness of breath while here and has not had sob since this morning so this is a 6 hours troponin Lower Extremity Course/Dx - Course Course Of Treatment: 58-year-old female presents with left calf pain for the past week. She had meniscus repair a couple weeks ago. She states she normally swims at least a mile a day. States that she started having the pain in her left calf while swimming. A couple days later she develop short of breath when she was swimming that lasted a couple minutes. States she felt a little chest tightness in the center of her chest earlier today. no chest pain with exertion. She states she was short of breath earlier today. She denies any shortness of breath with walking. There is some swelling to her legs. Denies any cardiac history. Does have a history of high blood pressure. Denies any family history of blood clots or cardiac disease. was a smoker. Denies any recent travel. On exam tenderness of left calf. Neurovascular intact. lungs CTA. Heart regular rate and rhythm. EKG shows sinus bradycardia. wbc normal. d-dimer negative. troponin .01. ultrasound shows soft tissue swelling. unclear what is causing this as no evidence of cellulitis on exam. has low risk factors for cardiac disease and has been chest pain free for over 6 hours so do not need to get another troponin so will discharge to follow up with cardiology or primary for a stress test outpatient. told follow up with ortho about swelling in the leg. told if develop worsening shortness of breath or chest pain to return. patient understand and agrees with plan. - Diagnoses Differential Diagnosis/HQI/PQRI: Positive: DVT, Sprain, Other - PE Provider Diagnoses: Pain of left calf, Shortness of breath Discharge - Sign-Out/Discharge Documenting (check all that apply): Patient Departure Patient Received Moderate/Deep Sedation with Procedure: No - Discharge Plan Condition: Good Disposition: HOME Patient Education Materials: Leg Pain (ED) Referrals: Jennifer Zeng MD [Primary Care Provider] - Emerson Casiano MD [Medical Doctor] - Additional Instructions: follow up with cardiology or primary within 4 days to get stress test follow up with ortho about swelling in leg ice, elevate, apply compression to leg Take Tylenol as needed for pain Return to ED if develop persistent chest pain or any new or worsening symptoms - Billing Disposition and Condition Condition: GOOD Disposition: Home
[2019-02-08 22:13] LABS: ABS Basophils 0.1 10^3/ul (0-0.2); ABS Eosinophils 0.2 10^3/ul (0-0.6); ABS Lymphocytes 3.6 10^3/ul (1.0-4.8); ABS Monocytes 0.4 10^3/ul (0-0.8); ABS Neutrophils 2.4 10^3/ul (1.5-7.7); Eosinophil % 2.8 %; Hematocrit 40 % (35-47); Hemoglobin 13.1 g/dL (12.0-16.0); Lymphocyte % 54.3 %; Mean Corpuscular HGB Conc 33 g/dL (31-36); Mean Corpuscular Hemoglobin 31 pg (27-31); Mean Corpuscular Volume 94 fL (80-97); Mean Platelet Volume 7.8 fL (7.4-10.4); Nucleated Red Blood Cells % 0.1; Platelet Count 230 10^3/uL (150-450); Red Blood Count 4.19 10^6 /uL (3.70-4.87); Red Cell Distribution Width 14 % (10.5-15); White Blood Count 6.7 10^3/uL (3.5-10.8)
[2019-02-08 22:29] LABS: Albumin 4.1 g/dL (3.2-5.2); Albumin/Globulin Ratio 1.5 (1-3); BUN/Creatinine Ratio 36.2 (8-20); Calcium 9.3 mg/dL (8.6-10.3); EGFR African American 105.4 (>60); EGFR Non-African American 87.1 (>60); Globulin 2.8 g/dL (2-4); Magnesium 2.2 mg/dL (1.9-2.7); Total Bilirubin 0.3 mg/dL (0.2-1.0); Total Protein 6.9 g/dL (6.4-8.9)
[2019-02-08 22:31] LABS: Troponin I 0.01 ng/mL (<0.04)
[2019-02-09 00:50] VITALS: BP 136/80
== END 2019-02-09 00:40 | disposition home or self-care (01) ==
LOC: ED 18:53
DX: M79.18 Myalgia, other site (principal); R06.02 Shortness of breath; I10 Essential (primary) hypertension; M13.862 Other specified arthritis, left knee; M13.861 Other specified arthritis, right knee; Z88.3 Allergy status to other anti-infective agents; Z88.5 Allergy status to narcotic agent; Z79.899 Other long term (current) drug therapy; Z98.84 Bariatric surgery status; Z87.891 Personal history of nicotine dependence
CPT/HCPCS: 36415; 71045; 80053; 83605; 83735; 83880; 84484; 85025; 85379; 93005; 99283

== ENCOUNTER 2019-10-19 20:32 | Emergency (ER) | payer BC, OTHER ==
--- OUTSIDE RECORDS SUMMARY | 2019-10-19 20:37 | XMS REPORT | Summary of Care ---
:1960 Author Organization [facility] Address [address] [address] Care Team Providers Name Role Phone AzucenaJennifer Primary Care Provider Reason for Referral Refer to Department Only (Routine) Status Reason Specialty Diagnoses / Referred By Referred To Procedures Contact Contact Pending Review Gastroenterology Diagnoses Generalized abdominal pain Elmer Bowens NP Gastroenterolog [address] y/Hepatology [address] [address] [address] [facility] Phone: Road [phone] [place], [place] Fax: [phone] Scheduling Instructions Is the patient on cpap machine?No Is the patient on oxygen?No BP 128/84 | Pulse 72 | Temp 97.8 F (36.6 C) BMI Readings from Last 4 Encounters: 09/10/19 : 31.69 kg/m 07/11/19 : 30.90 kg/m 02/14/19 : 31.41 kg/m 01/01/19 : 30.14 kg/m Controlled Substance Medications: Anticoagulant Medications: Psychiatric/Antianxiety Medications: Antiretroviral Medications: Outpatient Procedure (Routine) Status Reason Specialty Diagnoses / Referred By Referred To Procedures Contact Contact Pending Review Diagnoses Generalized abdominal pain Nevin Bowens NP [address] [address] Reason for Visit Reason Comments Abdominal Pain New pt. referred by Dr. Calix for chronic LLQ abdominal pain, Hx of sleeve surgery 2016. Refer to Department Only (Routine) Status Reason Specialty Diagnoses / Referred By Referred To Procedures Contact Contact Pending Review Gastroenterology Diagnoses Chronic abdominal pain Ayden Claix MD Gastroenterolog [address] [place] [address] [place] [address] [address] Phone: [place], [place] [phone] [address] Fax: Encounter Details Date Type Department Care Team Description 09/20/2019 Office Visit Kayden Avilez abdominal Gastroenterology/Hepa Nevin Ocampo NP pain (Primary Dx) tology 1 [facility] [address] [address] [address] [place] [address] Allergies Active Allergy Reactions Severity Noted Date Comments Amoxicillin Hives 05/26/2009 Codeine Unknown Reaction 05/26/2009 documented as of this encounter (statuses as of 09/20/2019) Medications Medication Sig Dispensed Refills Start Date End Date Status Cyanocobalamin (VITAMIN Take 1 Tab by 0 Active B-12 PO) mouth EVERY OTHER DAY. Multiple Vitamin Take by mouth. 0 Active (MULTI-VITAMIN PO) BIOTIN FORTE PO Take by mouth. 0 Active Vitamin E 100 units Oral Take by mouth. 0 Active Cap Bioflavonoid Products Take by mouth. 0 Active (BIOFLEX) Oral Tab documented as of this encounter (statuses as of 09/20/2019) Active Problems Problem Noted Date Primary osteoarthritis of right knee 10/07/2017 Acute pain of right knee 09/05/2017 S/P bariatric surgery 09/04/2016 Overview: Sleeve gastrectomy [facility] fall 2015 Lesion of right lower eyelid 02/13/2016 Nuclear sclerotic cataract of both eyes 02/13/2016 Chest pain 02/07/2015 Overview: Negative stress echo January 2015 in [place], [place]; started BB and statin for Drury risk >15% Dyslipidemia 02/07/2015 Overview: Drury risk 15% prior to starting pravastatin/aspirin January 2015 Hypertension 04/26/2014 Overview: Controlled on BB/thiazide since January 2015 documented as of this encounter (statuses as of 09/20/2019) Resolved Problems Problem Noted Date Resolved Date LID LESION RUL 04/28/2016 09/04/2016 BMI 40.0-44.9, adult 03/08/2014 09/20/2019 documented as of this encounter (statuses as of 09/20/2019) Immunizations Name Administration Dates Next Due TDAP Vaccine 05/14/2016 documented as of this encounter Social History Tobacco Use Types Packs/Day Years Used Date Former Smoker Cigarettes 0.5 35 Quit: 02/24/2014 Smokeless Tobacco: Never Used Alcohol Use Drinks/Week oz/Week Comments Yes 0 Standard drinks or equivalent 0.0 occasionally Sex Assigned at Date Recorded Not on file Job Start Date Occupation Industry Not on file Not on file Not on file Travel History Travel Start Travel End No recent travel history available. documented as of this encounter Last Filed Vital Signs Vital Sign Reading Time Taken Comments Blood Pressure 128/84 09/20/2019 7:50 AM EST Pulse 72 09/20/2019 7:50 AM EST Temperature 36.6 09/20/2019 7:50 AM EST C (97.8 F) Respiratory Rate - - Oxygen Saturation - - Inhaled Oxygen Concentration - - Weight - - Height - - Body Mass Index - - documented in this encounter Patient Instructions Patient InstructionsNevin Bowens NP - 09/20/2019 7:40 AM EST1. Labs today 2. Add an upper endoscopy to your already scheduled colonoscopy 3. Will contact you with Ultrasound reports once complete 4. Follow up after the above If you have not already been screened for Hepatitis C we would be happy to do that for you today. Currently we recommend screening for hepatitis C virus (HCV ) infection in persons at high risk for infection, and to adults born between 1945 and 1965. Thank you for choosing the [facility] for your needs today! -Nevin Bowens N.P. , Please call if you need to cancel or change your appt. time. Thank you for choosing [facility] for your health care needs, and for consulting with [facility] today. You may receive a survey following this visit, or after an upcoming hospital stay. As easy as it is to feel overloaded with surveys, we are required to send them out randomly and they do provide important feedback so that we may serve your needs in the best way. Please do take the few minutes required to complete the survey if you receive one. We get them too, after seeing the doctor, and they only take a few minutes to complete. documented in this encounter Progress Notes Nevin Bowens NP - 09/20/2019 7:40 AM EST PATIENT: Steph Gutierrez : 1960 DATE OF SERVICE: 09/20/2019 REFERRING PRACTITIONER: Ayden Calix PRIMARY CARE PROVIDER: Jennifer Zeng CHIEF COMPLAINT: Chief Complaint Patient presents with Abdominal Pain New pt. referred by Dr. Calix for chronic LLQ abdominal pain, Hx of sleeve surgery 2016. Subjective HISTORY OF PRESENT ILLNESS: Steph Gutierrez is a 59-y.o. female who presents for a consultation with abdominal pain. Pain is located in the left upper quadrant, diffusely without radiation. The pain is described as dull and aching. Onset was vague several months ago. Has a history of gastric sleeve 3 year ago but her current symptoms began a few months ago. Symptoms have been intermittent. Aggravating factors: none. Alleviating factors: none. Associated symptoms: none. She does have longstanding issues with constipation dn nausea which sheuses fiber supplementation and peppermint altoids for. The patient denies anemia, anorexia, arthralgias, bloating, chills, diarrhea, fever, frequency, headache, hematochezia, hematemesis, hematuria, malnutrition, melena, myalgias, sweats, vomiting and weight loss. Past Medical History: Diagnosis Date Essential (primary) hypertension controlled with meds Eye disease lid lesion rul, rll High cholesterol controlled with meds Postmenopausal Tobacco use disorder Past Surgical History: Procedure Laterality Date ID REMOV SESAMOID BONE,1ST TOE 1982 L foot UNLISTED PROCEDURE,MUSCULOSKELE Family History Problem Relation Age of Onset Arthritis Mother Hypertension Mother Seizures Mother Stroke Mother grandfathers both sides. Allergies Father Hypertension Father Colon Cancer Father Cancer Father pancreatic No Known Problems Sister No Known Problems Sister No Known Problems Sister No Known Problems Sister No Known Problems Brother No Known Problems Child No Known Problems Child Allergies Paternal Aunt Seizures Paternal Grandfather Thyroid Paternal Grandfather Thyroid Maternal Grandfather No Known Problems Maternal Aunt No Known Problems Maternal Uncle No Known Problems Maternal Grandmother No Known Problems Paternal Grandmother Glaucoma No family history Blindness No family history Macular Degeneration No family history Other Eye Problems No family history Current Outpatient Medications Medication Sig Bioflavonoid Products (BIOFLEX) Oral Tab Take by mouth. BIOTIN FORTE PO Take by mouth. Cyanocobalamin (VITAMIN B-12 PO) Take 1 Tab by mouth EVERY OTHER DAY. Multiple Vitamin (MULTI-VITAMIN PO) Take by mouth. Vitamin E 100 units Oral Cap Take by mouth. No current facility-administered medications for this visit. Allergies Allergen Reactions Amoxicillin Hives Codeine Unknown Reaction Social History Socioeconomic History Marital status: Spouse name: Not on file Number of children: Not on file Years of education: Not on file Highest education level: Not on file Occupational History Not on file Social Needs Financial resource strain: Not on file Food insecurity Worry: Not on file Inability: Not on file Transportation needs Medical: Not on file Non-medical: Not on file Tobacco Use Smoking status: Former Smoker Packs/day: 0.50 Years: 35.00 Pack years: 17.50 Types: Cigarettes Last attempt to quit: 02/24/2014 Years since quittin.5 Smokeless tobacco: Never Used Substance and Sexual Activity Alcohol use: Yes Alcohol/week: 0.0 standard drinks Comment: occasionally Drug use: No Sexual activity: Yes Partners: Male Lifestyle Physical activity Days per week: Not on file Minutes per session: Not on file Stress: Not on file Relationships Social connections Talks on phone: Not on file Gets together: Not on file Attends church service: Not on file Active member of club or organization: Not on file Attends meetings of clubs or organizations: Not on file Relationship status: Not on file Intimate partner violence Fear of current or ex partner: Not on file Emotionally abused: Not on file Physically abused: Not on file Forced sexual activity: Not on file Other Topics Concern Back Care Not Asked Bike Helmet Not Asked Blood Transfusions No Caffeine Concern Not Asked Exercise No Comment: none formal Hobby Hazards Not Asked International Travel Not Asked Service Not Asked Occupational Exposure Not Asked Seat Belt Not Asked Self-Exams Not Asked Sleep Concern Not Asked Special Diet Not Asked Stress Concern Not Asked Weight Concern Not Asked Social History Narrative 2 children. 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 Pets: 2 dogs/3cats REVIEW OF SYSTEMS: All remaining review of systems was negative except for as noted in the history of present illness/subjective. Objective PHYSICAL EXAMINATION: VITALS: BP 128/84 | Pulse 72 | Temp 97.8 F (36.6 C) There is no height or weight on fileto calculate BMI. GENERAL: alert, oriented, no acute distress. HEENT: No scleral icterus, MMM Psych: Affect normal Neck: no lymphadenopathy LUNGS: clear to auscultation bilaterally. HEART: regular rhythm, no murmurs, no gallops, no rubs. ABDOMEN: general exam: soft, non-tender, non-distended, without masses or organomegaly, normal active bowel sounds, Leavitt's sign negative. Extrmities: no edema Skin: clear Neuro: gait normal, a&o x 3 RECTAL: exam deferred. IMPRESSION: ICD-9-CM ICD-10-CM 1. Generalized abdominal pain 789.07 R10.84 REFER TO GI CELIAC DISEASE PANEL AMYLASE LIPASE LIVER FUNCTION PROFILE BASIC METABOLIC PANEL CBC WITH DIFFERENTIAL MAGNESIUM LEVEL VITAMIN D 25 HYDROXY ([facility]COCER) VITAMIN B12 / FOLATE EGD ([facility]ER / NON ALCOCER) REFER TO GI Plan PLAN: Patient Instructions 1. Labs today 2. Add an upper endoscopy to your already scheduled colonoscopy 3. Will contact you with Ultrasound reports once complete 4. Follow up after the above If you have not already been screened for Hepatitis C we would be happy to do that for you today. Currently we recommend screening for hepatitis C virus (HCV ) infection in persons at high risk for infection, and to adults born between 1945 and 1965. Thank you for choosing the [facility] for your needs today! -Nevin Bowens N.P. , Please call if you need to cancel or change your appt. time. Thank you for choosing [facility] for your health care needs, and for consulting with [facility] today. You may receive a survey following this visit, or after an upcoming hospital stay. As easy as it is to feel overloaded with surveys, we are required to send them out randomly and they do provide important feedback so that we may serve your needs in the best way. Please do take the few minutes required to complete the survey if you receive one. We get them too, after seeing the doctor, and they only take a few minutes to complete. Author: Nevin Bowens NP 09/20/2019 08:14 documented in this encounter Plan of Treatment Date Type Specialty Care Team Description 10/09/2019 GI Procedure Gastroenterology Vashti Hicks MD [address] [place] [address] [phone] 10/16/2019 Office Visit Gastroenterology Nevin oBwens NP [address] [address] 10/16/2019 Office Visit Internal Medicine Jennifer Zeng MD [address] [place] [address] [phone] 10/19/2019 IPPR Dental Isaiah Blood, [facility] [address] [address] 05/02/2020 Ocular Visit Optometry Martha Bonds, OD [address] [id number] Name Type Priority Associated Diagnoses Order Schedule CELIAC DISEASE PANEL Lab Routine Generalized abdominal Expected: 09/20/2019 pain (Approximate), Expires: 10/04/2019 AMYLASE Lab Routine Generalized abdominal Expected: 09/20/2019 pain (Approximate), Expires: 10/04/2019 LIPASE Lab Routine Generalized abdominal Expected: 09/20/2019 pain (Approximate), Expires: 10/04/2019 LIVER FUNCTION PROFILE Lab Routine Generalized abdominal Expected: 2018 pain (Approximate), Expires: 10/04/2019 BASIC METABOLIC PANEL Lab Routine Generalized abdominal Expected: 2018 pain (Approximate), Expires: 10/04/2019 CBC WITH DIFFERENTIAL Lab Routine Generalized abdominal Expected: 2018 pain (Approximate), Expires: 10/04/2019 MAGNESIUM LEVEL Lab Routine Generalized abdominal Expected: 09/20/2019 pain (Approximate), Expires: 11/21/2019 VITAMIN D 25 HYDROXY Lab Routine Generalized abdominal Expected: 09/20/2019 (ALCOCER) pain (Approximate), Expires: 11/21/2019 VITAMIN B12 / FOLATE Lab Routine Generalized abdominal Expected: 09/20/2019 pain (Approximate), Expires: 10/04/2019 Name Type Priority Associated Diagnoses Order Schedule EGD (ALCOCER / NON Referral Routine Generalized abdominal Expected: 2018, ALCOCER) pain Expires: 09/20/2020 REFER TO GI Referral Routine Generalized abdominal Expected: 09/20/2019, pain Expires: 09/20/2020 Health Maintenance Due Date Last Done Comments ZOSTER IMMUNIZATION SERIES 2009 (1 of 2) PAP SMEAR 04/26/2017 04/26/2014, 04/26/2014, 11/23/2010 Colonoscopy 05/23/2017 05/23/2014 LIPID DISORDER SCREENING 05/24/2017 05/24/2016, 01/31/2015, 03/08/2014 MAMMOGRAM (SCREENING) 11/11/2018 11/11/2017, 04/18/2015, 04/26/2014, Additional history exists INFLUENZA VACCINE (#1) 2019 DIABETES SCREENING 09/29/2019 09/29/2018, 09/29/2018, 06/14/2018, Additional history exists DEPRESSION SCREENING 02/15/2020 02/14/2019 DTaP/Tdap/Td Vaccines (2 - 05/14/2026 05/14/2016 Tdap) HEPATITIS A IMMUNIZATION Aged Out No longer eligible SERIES based on patient's age to complete this topic HPV IMMUNIZATION SERIES Aged Out No longer eligible based on patient's age to complete this topic MENINGOCOCCAL VACCINE IMM Aged Out No longer eligible based on patient's age to complete this topic PNEUMOCOCCAL 0-64 YRS Aged Out No longer eligible based on patient's age to complete this topic documented as of this encounter Goals Goal Patient Goal Associated Recent Patient-Stated? Author Type Problems Progress Blood Pressure Blood Pressure 128/84 No Fifi, < 140/90 (09/20/2019 Ayden Mckeon, 7:50 AM EST) Note: This is an individualized treatment (blood pressure) goal for Steph Gutierrez: Displayed above (on the left) is your goal for blood pressure control. Your most recent blood pressure is also shown above, on the right. You should try to achieve blood pressures that are lower than your goal listed above (on the left). Weight loss vs. 18 mo Lifestyle 0 (09/10/2019 7:48 AM Ayden Brennan MD max (lbs) >= 10 EST) Note: This is an individualized lifestyle goal for Steph Gutierrez: Your body mass index (BMI) is more than 30. You should lose weight. A reasonable starting goal is to lose 10 pounds. Displayed above is how many pounds you have lost thus far towards your 10 pound weight loss goal. Take all prescribed medications as Self-management Ayden Brennan MD directed Note: This is an individualized self-management goal for Steph Gutierrez: Please take all prescribed medications as directed. 1. Do not skip doses. If you cannot afford your medications, talk with your doctor. 2. Use a pill reminder system such as a pill box if needed. Your pharmacist can help you with this. 3. Contact your Pharmacy 5 days before your medication runs out. If you cannot take your medications for any reasons, talk with your doctor. 4. Please bring all of your medication bottles and inhalers (or a list of all your medications/inhalers) with you to every visit. Potential barriers to meeting all of your care plan goals will continue to be addressed on an ongoing basis. documented as of this encounter Results Not on filedocumented in this encounter Visit Diagnoses Diagnosis Generalized abdominal pain Abdominal pain, generalized documented in this encounter Insurance Payer Benefit Plan / Subscriber ID Effective Dates Phone Address Type Group BCBS NATIONAL BC NATIONAL xxxxxxxxx 2017-[employer] t [employer] [facility] xxxxxxxxx 2019-[facility] documented as of this encounter"
--- OUTSIDE RECORDS SUMMARY | 2019-10-19 20:37 | XMS REPORT | Summary of Care ---
:1960 Author Organization [facility] Address 1 [facility] [place] [address] Care Team Providers Name Role Phone Nayla Zengh Primary Care Provider Reason for Referral MRI/CAT/PET Scan (Routine) Status Reason Specialty Diagnoses / Referred By Referred To Procedures Contact Contact Pending Review Diagnoses Abdominal pain, LLQ Abnormal ultrasound of abdomen Son Bowens MR ABDOMEN W AND WO CONTRAST Nevin Ocampo NP 1 [facility] [place] [address] Reason for Visit Reason Comments Follow Up Encounter Details Date Type Department Care Team Description 10/16/2019 Office Visit Elmer Bowens Abdominal pain, LLQ (Primary Dx) ; Gastroenterology/Hepa Nevin Ocampo NP Need for vaccination; tology 1 [facility] Abnormal ultrasound of abdomen [address] [place] [address] [place] [address] Allergies Active Allergy Reactions Severity Noted Date Comments Amoxicillin Hives 05/26/2009 Codeine Unknown Reaction 05/26/2009 documented as of this encounter (statuses as of 10/16/2019) Medications Medication Sig Dispensed Refills Start Date End Date Status Cyanocobalamin (VITAMIN Take 1 Tab by 0 Active B-12 PO) mouth EVERY OTHER DAY. Multiple Vitamin Take by mouth. 0 Active (MULTI-VITAMIN PO) BIOTIN FORTE PO Take by mouth. 0 Active Vitamin E 100 units Oral Take by mouth. 0 Active Cap Bioflavonoid Products Take by mouth. 0 Active (BIOFLEX) Oral Tab hyoscyamine (LEVBID) Take 0.375 mg by 60 Tab 0 10/16/2019 Active 0.375 MG Oral TABLET SR mouth EVERY 12 HR TWELVE HOURS. documented as of this encounter (statuses as of 10/16/2019) Active Problems Problem Noted Date Primary osteoarthritis of right knee 10/07/2017 Acute pain of right knee 09/05/2017 S/P bariatric surgery 09/04/2016 Overview: Sleeve gastrectomy [facility] fall 2015 Lesion of right lower eyelid 02/13/2016 Nuclear sclerotic cataract of both eyes 02/13/2016 Chest pain 02/07/2015 Overview: Negative stress echo January 2015 in [place], [place]; started BB and statin for [place] risk >15% Dyslipidemia 02/07/2015 Overview: [place] risk 15% prior to starting pravastatin/aspirin January 2015 Hypertension 04/26/2014 Overview: Controlled on BB/thiazide since January 2015 documented as of this encounter (statuses as of 10/16/2019) Resolved Problems Problem Noted Date Resolved Date LID LESION RUL 04/28/2016 09/04/2016 BMI 40.0-44.9, adult 03/08/2014 09/20/2019 documented as of this encounter (statuses as of 10/16/2019) Immunizations Name Administration Dates Next Due Influenza Vaccine (EGG FREE) 09/19/2019 TDAP Vaccine 05/14/2016 documented as of this [...] Sign Reading Time Taken Comments Blood Pressure 130/80 10/16/2019 8:59 AM EST Pulse 70 10/16/2019 8:52 AM EST Temperature 36.7 10/16/2019 8:52 AM EST C (98 F) Respiratory Rate - - Oxygen Saturation 94% 10/16/2019 8:52 AM EST Inhaled Oxygen Concentration - - Weight 83.9 kg (185 lb) 10/16/2019 8:52 AM EST Height 162.6 cm (5' 4") 10/16/2019 8:52 AM EST Body Mass Index 31.76 10/16/2019 8:52 AM EST documented in this encounter Patient Instructions Patient InstructionsNevin Bowens NP - 10/16/2019 9:00 AM EST1. Will try Levbid twice daily for the abdominal pain 2. Will need MRI to evaluate the dilated bile duct, this needs to be authorized , then we can schedule this 3. Follow up after the above Thank you for choosing the [facility] for your needs today! -Nevin Bowens N.P. , Please call if you need to cancel or change your appt. time. Thank you for choosing [facility] for your health care needs, and for consulting with [facility] today. You may receive a survey following [...] encounter Progress Notes Nevin Bowens NP - 10/16/2019 9:00 AM EST PATIENT: Steph Gutierrez : 1960 DATE OF SERVICE: 10/16/2019 REFERRING PRACTITIONER: Jennifer Zeng PRIMARY CARE PROVIDER: Jennifer Zeng CHIEF COMPLAINT: Chief Complaint Patient presents with Follow Up Subjective HISTORY OF PRESENT ILLNESS: Steph Gutierrez is a 59-y.o. female who presents for a follow-up with abdominal pain. Pain is located in the left upper quadrant, left lower quadrant without radiation. The pain is described as dull and aching. She reports the pain seems constant, not relieved by BMs. Does have intermittent sharper pains. She does have some low back pain as well but does not feel it is related. Recent upper endoscopy and colonoscopy were unremarkable. Recent ultrasound 09/14/2019 was unremarkable with exception of a dilated bile duct and small liver cyst in the left lobe. She denies dysphagia, fatigue, nausea, vomiting, melena, hematemesis, hematochezia, constipation, diarrhea, jaundice, fevers, chills, night sweats, weight loss, easy bruising, chest pain, shortness of breath, dysuria, hematuria , pyuria, joint pains, acholic stools, dark urine or systemic pruritis. Past Medical History: Diagnosis Date Essential (primary) hypertension controlled with meds Eye disease lid lesion rul, rll High cholesterol controlled with meds Postmenopausal Tobacco use disorder Past Surgical History: Procedure Laterality Date IN REMOV SESAMOID BONE,1ST TOE 1982 L foot [...] 1 Tab by mouth EVERY OTHER DAY. hyoscyamine (LEVBID) 0.375 MG Oral TABLET SR 12 HR Take 0.375 mg by mouth EVERY TWELVE HOURS. Multiple Vitamin (MULTI-VITAMIN PO) Take by mouth. 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 Pets: 2 dogs/3cats REVIEW OF SYSTEMS: All remaining review of systems was negative except for as noted in the history of present illness/subjective. Objective PHYSICAL EXAMINATION: VITALS: BP 130/80 | Pulse 70 | Temp 98 F (36.7 C) | Ht 5' 4" (1.626 m) | Wt 185 lb (83.9 kg) | SpO2 94% | BMI 31.76 kg/m Body mass index is 31.76 kg/m. GENERAL: alert, oriented, no acute distress. HEENT: No scleral icterus, MMM Psych: Affect normal Neck: no lymphadenopathy LUNGS: clear to auscultation bilaterally. HEART: regular rhythm, no murmurs, no gallops, no rubs. ABDOMEN: general exam: soft, LUQ, LLQ tender, non-distended, obese, normal active bowel sounds, Leavitt's sign negative. Extrmities: no edema Skin: clear Neuro: gait normal, a&o x 3 RECTAL: exam deferred. IMPRESSION: ICD-9-CM ICD-10-CM 1. Abdominal pain, LLQ 789.04 R10.32 MR ABDOMEN W AND WO CONTRAST 2. Need for vaccination V05.9 Z23 3. Abnormal ultrasound of abdomen 793.6 R93.5 MR ABDOMEN W AND WO CONTRAST Plan PLAN: Patient Instructions 1. Will try Levbid twice daily for the abdominal pain 2. Will need MRI to evaluate the dilated bile duct, this needs to be authorized , then we can schedule this 3. Follow up after the above Thank you for choosing the [facility] for your needs today! -Nevin Bowens N.PMary , Please call if you need to cancel or change your appt. time. Thank you for choosing [facility] for your health care needs, and for consulting with [facility] today. You may receive a survey following [...] minutes to complete. Author: Nevin Bowens NP 10/16/2019 10:19 documented in this encounter Plan of Treatment Date Type Specialty Care Team Description 10/19/2019 IPPR Dental Isaiah Blood, [facility] [address] [place] [address] 10/26/2019 Lab Internal Medicine 11/09/2019 Ancillary Procedure Radiology 01/18/2020 Office Visit Internal Medicine Jennifer Zeng MD [address] [place] [address] [phone] 05/02/2020 Ocular Visit Optometry Martha Bonds, [place] [address] [place] [address] Name Type Priority Associated Diagnoses Order Schedule MR ABDOMEN W AND WO Imaging Routine Abdominal pain, LLQ 1 Occurrences starting CONTRAST Abnormal ultrasound of 10/16/2019 until abdomen 10/30/2019 Health Maintenance Due Date Last Done Comments PAP SMEAR 04/26/2017 04/26/2014, 04/26/2014, 11/23/2010 LIPID DISORDER SCREENING 05/24/2017 05/24/2016, 01/31/2015, 03/08/2014 MAMMOGRAM (SCREENING) 11/11/2018 11/11/2017, 04/18/2015, 04/26/2014, Additional history exists DEPRESSION SCREENING 02/15/2020 02/14/2019 DIABETES SCREENING 09/27/2020 09/27/2019, 09/29/2018, 09/29/2018, Additional history exists INFLUENZA VACCINE (#1) 2020 Postponed from 06/03/2019 (Patient refused) ZOSTER IMMUNIZATION SERIES 10/16/2020 Postponed from (1 of 2) 2009 (Vaccine not available) Colonoscopy 10/09/2022 10/09/2019, 05/23/2014 DTaP/Tdap/Td Vaccines (2 - 05/14/2026 05/14/2016 Tdap) [...] Type Problems Progress Blood Pressure Blood Pressure 140/84 No Orange, < 140/90 (10/16/2019 Ayden Mckeon, 9:31 AM EST) Note: This is an individualized treatment (blood pressure) goal for Steph Gutierrez: Displayed above (on the left) is your goal for blood pressure control. Your most recent blood pressure is also shown above, on the right. You should try to achieve blood pressures that are lower than your goal listed above (on the left). Weight loss vs. 18 mo Lifestyle 0 (10/16/2019 9:31 AM Malathi Calix, Ayden Mckeon MD max (lbs) >= 10 EST) Note: [...] is an individualized self-management goal for Steph Aceves Brenda: Please take all prescribed medications as directed. [...] filedocumented in this encounter Visit Diagnoses Diagnosis Abdominal pain, LLQ Abdominal pain, left lower quadrant Need for vaccination Need for prophylactic vaccination and inoculation against unspecified single disease Abnormal ultrasound of abdomen Nonspecific (abnormal) findings on radiological and other examination of abdominal area, including retroperitoneum documented in this encounter Insurance Payer Benefit Plan / Subscriber ID Effective Dates Phone Address Type Group BCBS NATIONAL BCBS NATIONAL xxxxxxxxx 2017-Pres Blue t Cross/Blue Shield [facility] xxxxxxxxx 2019-[facility] documented as of this encounter
--- OUTSIDE RECORDS SUMMARY | 2019-10-19 20:37 | XMS REPORT | Summary of Care ---
:1960 Author Organization [facility] Address [address] [place] [address] Care Team Providers Name Role Phone Jennifer Zeng Primary Care Provider Reason for Referral Refer to Department Only (Routine) Status Reason Specialty Diagnoses / Referred By Referred To Contact Procedures Contact Closed Physical Therapy Diagnoses Chronic left-sided low back pain without sciatica Ayden Calix MD THERAPY [address] [place], [place] [address] [place] [address] Phone: [employer] [place] [address] Fax: Phone: [phone] Scheduling Instructions [facility] Refer to Department Only (Routine) Status Reason Specialty Diagnoses / Referred By Referred To Procedures Contact Contact Pending Review Gastroenterology Diagnoses Chronic abdominal pain Ayden Calix MD Gastroenterolog [address]/Hepatology [place] [address] [facility] [address] [address] Phone: [place], [place] [phone] Fax: Scheduling Instructions Is the patient on cpap machine?No Is the patient on oxygen?No BP 128/86 (BP Location: Right arm, Patient Position: Sitting) | Pulse 66 | Temp 100.1 F (37.8 C) (Tympanic) | Ht 5' 4" (1.626 m) | Wt 184 lb 9.6 oz (83.7 kg) | SpO2 94% | BMI 31.69 kg/m BMI Readings from Last 4 Encounters: 09/10/19 : 31.69 kg/m 07/11/19 : 30.90 kg/m 02/14/19 : 31.41 kg/m 01/01/19 : 30.14 kg/m Controlled Substance Medications: Anticoagulant Medications: Psychiatric/Antianxiety Medications: Antiretroviral Medications: MRI/CAT/PET Scan (Routine) Status Reason Specialty Diagnoses / Referred By Referred To Procedures Contact Contact Pending Review Diagnoses Generalized abdominal pain Ayden Calix Procedures US ABDOMEN COMPLETE R, [address] [place] [address] Reason for Visit Reason Comments Back Pain dull back pain starting X1 year ago Abdominal Pain dull left lower quadrant pain [id number] ,sharp upper right pain X2 months Cough -1 day ago acompanied by body eaches ,drainage in the back of throat pr patient Earache right ear pain since -1day Encounter Details Date Type Department Care Team Description 09/10/2019 Office Visit [place] [facility] Ayden Calix, Chronic left- sided low back pain without sciatica (Primary Dx); Medicine Chronic abdominal pain; [address] [place] [address] Acute URI; [place], [place] [id number] [place] [address] Generalized abdominal pain [phone] Allergies Active Allergy Reactions Severity Noted Date Comments Amoxicillin Hives 05/26/2009 Codeine Unknown Reaction 05/26/2009 documented as of this encounter (statuses as of 09/10/2019) Medications Medication Sig Dispensed Refills Start Date [...] as of this encounter (statuses as of 09/10/2019) Active Problems Problem Noted Date Primary osteoarthritis of right knee 10/07/2017 Acute pain of right knee 09/05/2017 S/P bariatric surgery 09/04/2016 Overview: Sleeve gastrectomy [facility] fall 2015 Lesion of right lower eyelid 02/13/2016 Nuclear sclerotic cataract of both eyes 02/13/2016 Chest pain 02/07/2015 Overview: Negative stress echo January 2015 in [place], [place]; started BB and statin for [place] risk >15% Dyslipidemia 02/07/2015 Overview: [place] risk 15% prior to starting pravastatin/aspirin January 2015 Hypertension 04/26/2014 Overview: Controlled on BB/thiazide since January 2015 BMI 40.0-44.9, adult 03/08/2014 documented as of this encounter (statuses as of 09/10/2019) Resolved Problems Problem Noted Date Resolved Date LID LESION RUL 04/28/2016 09/04/2016 documented as of this encounter (statuses as of 09/10/2019) Immunizations Name Administration Dates Next Due TDAP [...] Sign Reading Time Taken Comments Blood Pressure 128/86 09/10/2019 7:48 AM EST Pulse 66 09/10/2019 7:48 AM EST Temperature 37.8 09/10/2019 7:48 AM C (100.1 EST F) Respiratory Rate - - Oxygen Saturation 94% 09/10/2019 7:48 AM EST Inhaled Oxygen Concentration - - Weight 83.7 kg (184 lb 9.6 oz) 09/10/2019 7:48 AM EST Height 162.6 cm (5' 4") 09/10/2019 7:48 AM EST Body Mass Index 31.69 09/10/2019 7:48 AM EST documented in this encounter Patient Instructions Patient InstructionsAyden Calix MD - 09/10/2019 8:00 AM ESTViral infection For fever, body aches, and sore throat: acetaminophen (tylenol) 325 m pills every 6 hours. There are many over the counter cough medications. I recommend the followin. Robitussin DM 2. Mucinex DM 3. Dayquil and Nyquil. Physical therapy for low back pain [facility] Ultrasound abdomen I recommend a consultation here at [facility] with our gastro-intestinal and liver specialist , Dr Vashti Hicks or her library assistant Nevin Bowens BATT MACHINE OPERATOR. You can call [phone] to make an appointment for this Get colonoscopy set up for this month or next documented in this encounter Progress Notes Ayden Calix MD - 09/10/2019 8:00 AM EST PATIENT: Steph Gutierrez : 1960 DATE OF SERVICE: 09/10/2019 CHIEF COMPLAINT: Chief Complaint Patient presents with Back Pain dull back pain starting X1 year ago Abdominal Pain dull left lower quadrant pain [id number] ,sharp upper right pain X2 months Cough -1 day ago acompanied by body eaches ,drainage in the back of throat pr patient Earache right ear pain since -1day Subjective HISTORY OF PRESENT ILLNESS: Steph Gutierrez is a 59-y.o. female. HPI Multiple issues 1. Left lower back ache and dull pressure sensation for 1-1.5 years it is 5/10 ache no radiation no right sided low back pain no trauma no history cancer no red flag symptoms using no medications for this denies radicular symptoms no neurological symptoms in the legs she has history of low back pain in the past no recent heavy lifting 2. 1-2 days sore throat and right ear pain and pressure no fevers no shortness of breath chest pain and no sputum production she has sore throat she got flu shot she denies illness exposure 3. Dull ache left lower quadrant and left mid abdomen for 3-4 weeks perhaps 2 month it is 5/10 no associated GI symptoms no other gastro-intestinal symptoms no nausea and vomitting no change in bowel movements she denies history of gastro-intestinal disease She is overdue to get colonoscopy she had ct scan several years ago abdomen showing possible choledocholithiasis she denies biliary colic type symptoms Patient Active Problem List Diagnosis BMI 40.0-44.9, adult (HCC) Hypertension Chest pain Dyslipidemia Lesion of right lower eyelid Nuclear sclerotic cataract of both eyes S/P bariatric surgery Acute pain of right knee Primary osteoarthritis of right knee Family History Problem Relation Age of Onset [...] Financial resource strain: Not on file Food insecurity: Worry: Not on file Inability: Not on file Transportation needs: Medical: Not on file Non-medical: Not on file Tobacco Use Smoking status: Former Smoker Packs/day: 0.50 Years: 35.00 Pack years: 17.50 Types: Cigarettes Last attempt to quit: 02/24/2014 Years since quittin.5 Smokeless tobacco: Never Used Substance and Sexual Activity Alcohol use: Yes Alcohol/week: 0.0 standard drinks Comment: occasionally Drug use: No Sexual activity: Yes Partners: Male Lifestyle Physical activity: Days per week: Not on file Minutes per session: Not on file Stress: Not on file Relationships Social connections: Talks on phone: Not on file Gets together: Not on file Attends orthodoxy service: Not on file Active member of club or organization: Not on file Attends meetings of clubs or organizations: Not on file Relationship status: Not on file Intimate partner violence: Fear of current or ex partner: Not [...] Not Asked Social History Narrative 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 Pets: 2 dogs/3cats ROS no genito-urinary symptoms No pulmonary or cardiovascular symptoms No thoracic or cervical spine symptoms No weight gain or loss All rest of the 12 item ROS is negative. Objective PHYSICAL EXAM: VITALS: BP 128/86 (BP Location: Right arm, Patient Position: Sitting) | Pulse 66 | Temp 100.1 F (37.8 C) (Tympanic) | Ht 5' 4" (1.626 m) | Wt 184 lb 9.6 oz (83.7 kg) | SpO2 94% | BMI 31.69 kg/m Body mass index is 31.69 kg/m. Physical Exam Back exam: pain with motion noted during exam, tenderness noted left paraspinal soft tissue L2-5 level , negative straight-leg raise bilaterally, normal reflexes and strength bilateral lower extremities, sensory exam intact bilateral lower extremities, no spinous process tenderness Normal gait Throat exam normal. Oral cavity, tongue, pharynx and palate have no inflammation or suspicious lesions. Teeth normal without tenderness Normal ear canals and tms Mild to moderate left lower quadrant and left mid abdomen tenderness no mass normal bowel sounds No right upper quadrant tenderness negative calderon sign . ASSESSMENT / IMPRESSION: ICD-9-CM ICD-10-CM 1. Chronic left-sided low back pain without sciatica reassurance physical therapy referral 724.2 M54.5 REFER TO PHYSICAL THERAPY / REHAB 338.29 G89.29 2. Chronic abdominal pain ultrasound abdomen get colonoscopy done and do gastro- intestinal [id number] R10.9 REFER TO GI 338.29 G89.29 3. Acute UPPER RESPIRATORY INFECTION reassurance over the counter medications see below 465.9 J06.9 4. Generalized abdominal pain 789.07 R10.84 US ABDOMEN COMPLETE Patient Instructions Viral infection For fever, body aches, and sore throat: acetaminophen (tylenol) 325 m pills every 6 hours. There are many over the counter cough medications. I recommend the followin. Robitussin DM 2. Mucinex DM 3. Dayquil and Nyquil. Physical therapy for low back pain [facility] [employer] Ultrasound abdomen I recommend a consultation here at [facility] with our gastro-intestinal and liver specialist MD, Dr Vashti Hicks or her library assistant Nevin Bowens BATT MACHINE OPERATOR. You can call [phone] to make an appointment for this Get colonoscopy set up for this month or next Ayden Calix MD 09/10/2019 13:57 documented in this encounter Plan of Treatment Date Type Specialty Care Team Description 09/14/2019 Ancillary Procedure Radiology 09/20/2019 Office Visit Gastroenterology Nevin Bowens NP [address] [place] [place] [address] 10/16/2019 Office Visit Internal Medicine Jennifer Zeng MD [address] [place] [address] [phone] 10/19/2019 [facility] Dental Isaiah Blood [facility] [address] [place] [address] [phone] 10/24/2019 GI Procedure Gastroenterology Vashti Hicks MD [address] [place] [address] [phone] 05/02/2020 Ocular Visit Optometry Martha Bonds, OD [address] [place] [address] Name Type Priority Associated Diagnoses Order Schedule US ABDOMEN COMPLETE Imaging Routine Generalized abdominal 1 Occurrences starting pain 09/10/2019 until 09/09/2020 Name Type Priority Associated Diagnoses Order Schedule REFER TO GI Referral Routine Chronic abdominal pain Expected: 09/10/2019, Expires: 09/10/2020 REFER TO PHYSICAL Referral Routine Chronic left-sided low Ordered: 2018 THERAPY / REHAB back pain without sciatica Health Maintenance Due Date Last Done Comments ZOSTER IMMUNIZATION SERIES 2009 (1 of 2) PAP SMEAR 04/26/2017 04/26/2014, 04/26/2014, 11/23/2010 Colonoscopy 05/23/2017 05/23/2014 LIPID DISORDER SCREENING 05/24/2017 05/24/2016, 01/31/2015, 03/08/2014 MAMMOGRAM (SCREENING) 11/11/2018 11/11/2017, 04/18/2015, 04/26/2014, Additional history exists INFLUENZA VACCINE (#1) 2019 DIABETES SCREENING 09/29/2019 09/29/2018, 09/29/2018, 06/14/2018, Additional history exists DEPRESSION SCREENING 02/15/2020 02/14/2019 HPV IMMUNIZATION SERIES Aged Out No longer [...] Type Problems Progress Blood Pressure Blood Pressure 128/86 No Fifi, < 140/90 (09/10/2019 Ayden Mckeon, 7:48 AM EST) Note: This is an individualized [...] is an individualized self-management goal for Steph Ketan Browncoretta: Please take all prescribed medications as directed. [...] filedocumented in this encounter Visit Diagnoses Diagnosis Chronic left-sided low back pain without sciatica - Primary Chronic abdominal pain Abdominal pain, unspecified site Acute URI Acute upper respiratory infections of unspecified site Generalized abdominal pain Abdominal pain, generalized documented in this encounter Insurance Payer Benefit Plan / Subscriber ID Effective Dates Phone Address Type Group BCBS NATIONAL BCBS NATIONAL xxxxxxxxx 2017-[place] Blue t Cross/Blue Shield [facility] xxxxxxxxx 2019-[place] documented as of this encounter
--- OUTSIDE RECORDS SUMMARY | 2019-10-19 20:37 | XMS REPORT | Summary of Care ---
:1960 Author Organization [facility] Address [address] [facility] [place] [address] Care Team Providers Name Role Phone Ary Zeng Primary Care Provider Reason for Visit Reason Comments Physical pap 04/26/14, mammo 11/11/17, dexa 05/25/16, colonoscopy 10/09/19 Hypertension Encounter Details Date Type Department Care Team Description 10/16/2019 Office Visit Tensed Internal Ary Zeng MD Routine general medical examination at a health care facility (Primary Dx); Medicine [address] Chronic left-sided low back pain without sciatica; [address] [place] [address] Encounter for screening for malignant neoplasm of breast; [place] [address] Encounter for gynecological examination; [phone] Screening mammogram, encounter for; (Fax) Lipid disorder; Elevated BP without diagnosis of hypertension Allergies Active Allergy Reactions Severity Noted Date [...] S/P bariatric surgery 09/04/2016 Overview: Sleeve gastrectomy [facility] fall 2015 Lesion of right lower eyelid 02/13/2016 Nuclear sclerotic cataract of both eyes 02/13/2016 Chest pain 02/07/2015 Overview: Negative stress echo January 2015 in [place], [place]; started BB and statin for [place] risk >15% Dyslipidemia 02/07/2015 Overview: [place] risk 15% prior to starting pravastatin/aspirin January [...] Sign Reading Time Taken Comments Blood Pressure 140/84 10/16/2019 9:31 AM EST Pulse 87 10/16/2019 9:31 AM EST Temperature - - Respiratory Rate - - Oxygen Saturation 94% 10/16/2019 9:31 AM EST Inhaled Oxygen Concentration - - Weight 84.1 kg (185 lb 4.8 oz) 10/16/2019 9:31 AM EST Height 162.6 cm (5' 4") 10/16/2019 9:31 AM EST Body Mass Index 31.81 10/16/2019 9:31 AM EST documented in this encounter Patient Instructions Patient InstructionsAry Zeng MD - 10/16/2019 9:40 AM ESTDASH Eating Plan WHAT YOU NEED TO KNOW: The DASH (Dietary Approaches to Stop Hypertension) Eating Plan is designed to help prevent or lower high blood pressure. It can also help to lower LDL (bad) cholesterol and decrease your risk of heart disease. The plan is low in sodium, sugar, unhealthy fats, and total fat. It is high in potassium, calcium, magnesium, and fiber. These nutrients are added when you eat more fruits, vegetables, and whole grains. DISCHARGE INSTRUCTIONS: How much sodium you should have each day: Your dietitian will tell you how much sodium you should have each day. People with high blood pressure should have 1,500 to 2,300 mg of sodium. How to limit sodium: Read food labels: Food labels can help you choose foods that are low in sodium. The amount of sodium is listed in milligrams. The % Daily Value (DV) column tells you how much of your daily needs are met by 1 serving of the food for each nutrient listed. Choose foods that have less than 5% of theDV of sodium. These foods are considered low in sodium. Foods that have 20% or more of the DV of sodium are considered high in sodium. Avoid foods that have more than 300 mg of sodium in each serving. Choose foods that say low-sodium, reduced -sodium, or no salt added on the food label. Avoid salt: Do not salt food at the table, and add very little salt to foods during cooking. Use herbs and spices, such as onions, garlic, and salt- free seasonings to add flavor to foods. Try lemon or turtle mountain juice or vinegar to give foods a tart flavor. Use hot peppers or a small amount of hot pepper sauce to add a spicy flavor to foods. Ask about salt substitutes: Ask your healthcare provider if you may use salt substitutes. Somesalt substitutes have ingredients that can be harmful to people with certain health conditions. Choose foods carefully at restaurants: Meals from restaurants, especially fast food restaurants, are often high in sodium. Some restaurants have nutrition information that tells you the amount ofsodium in their foods. Ask to have your food prepared with less, or no salt. What you should know about fats: Include healthy fats: Examples are unsaturated fats and omega-3 fatty acids. Unsaturated fats are found in soybean, canola, olive, or sunflower oil, and liquid and soft tub margarines. [place]-3 fatty acids are found in fatty fish , such as salmon, tuna, mackerel, and sardines. It is also found in flaxseed oil and ground flaxseed. Avoid unhealthy fats: Do not eat unhealthy fats, such as saturated fats and trans fats. Saturated fats are found in foods that contain fat from animals. Examples are fatty meats, whole milk, butter, cream, and other dairy foods. It is also found in shortening, butter, stick margarine, palm oil, and coconut oil. Trans fats are found in fried foods, crackers, chips, and baked goods made with margarine or shortening. Foods to include: With the DASH eating plan, you need to eat a certain number of servings from eachfood group. This will help you get enough of certain nutrients and limit others. The amount of servings you should eat depends on how many calories you need. Your dietitian can tell you how many calories you need. The number of servings listed next to the food groups below are for people who need about 2,000 calories each day. Grains: 6 to 8 servings (3 of these servings should be whole grain foods) 1 slice of whole-grain bread 1 ounce of dry cereal cup of cooked cereal, pasta, or brown rice Vegetables and fruit: 4 to 5 servings of fruits and 4 to 5 servings of vegetables 1 medium fruit cup of frozen, canned (no added salt), or chopped fresh vegetables cup of fresh, frozen, dried, or canned fruit (canned in light syrup or fruit juice) cup of vegetable or fruit juice Dairy: 2 to 3 servings 1 cup of nonfat (skim) or 1% milk 1 ounces of fat-free or low-fat cheese 6 ounces of nonfat or low-fat yogurt Lean mean, poultry, and fish: 6 ounces or less Poultry (chicken, turkey) with no skin Fish (especially fatty fish, such as salmon, fresh tuna, or mackerel) Lean beef and pork (loin, round, extra lean hamburger) Egg whites and egg substitutes Nuts, seeds, and legumes: 4 to 5 servings each week cup of cooked beans and peas 1 ounces of unsalted nuts 2 tablespoons of peanut butter or seeds Sweets and added sugars: 5 or less per week 1 tablespoon of sugar, jelly, or jam cup of sorbet or gelatin 1 cup of lemonade Foods to avoid: Grains: Baked goods, such as doughnuts, pastries, cookies, and biscuits (high in fat and sugar) Mixes for cornbread and biscuits, packaged foods, such as bread stuffing, rice and pasta mixes,macaroni and cheese, and instant cereals (high in sodium) Fruit and vegetables: Regular, canned vegetables (high in sodium) Sauerkraut, pickled vegetables, and other foods prepared in brine (high in sodium) Fried vegetables or vegetables in butter or high-fat sauces Fruit in cream or butter sauce (high in fat) Dairy: Whole milk, 2% milk, and cream (high in fat) Regular cheese and processed cheese (high in fat and sodium) Meats and protein foods: Smoked or cured meat, such as corned beef, david, ham, hot dogs, and sausage (high in fat and sodium) Canned beans and canned meats or spreads, such as potted meats, sardines, anchovies, and imitation seafood (high in sodium) Deli or lunch meats, such as bologna, ham, turkey, and roast beef (high in sodium) High-fat meat (T-bone steak, regular hamburger, and ribs) Whole eggs and egg yolks (high in fat) Other: Seasonings made with salt, such as garlic salt, celery salt, onion salt, seasoned salt, meat tenderizers, and monosodium glutamate (MSG) Miso soup and canned or dried soup mixes (high in sodium) Regular soy sauce, barbecue sauce, teriyaki sauce, steak sauce, Worcestershire sauce, and most flavored vinegars (high in sodium) Regular condiments, such as mustard, ketchup, and salad dressings (high in sodium) Gravy and sauces, such as Juan or cheese sauces (high in sodium and fat) Drinks high in sugar, such as soda or fruit drinks Snack foods, such as salted chips, popcorn, pretzels, pork rinds, salted crackers, and salted nuts Frozen foods, such as dinners, entrees, vegetables with sauces, and breaded meats (high in sodium) Other guidelines to follow: Maintain a healthy weight: Your risk of heart disease is higher if you are overweight. Your healthcare provider may suggest that you lose weight if you are overweight. You can lose weight by eating fewer calories and foods that have added sugars and fat. The DASH meal plan can help you do this. Decrease calories by eating smaller portions at each meal and fewer snacks. Ask your healthcare provider for more information about how to lose weight. Exercise regularly: Regular exercise can help you reach or maintain a healthy weight. Regular exercise can also help decrease your blood pressure and improve your cholesterol levels. Get 30 minutes or more of moderate exercise each day of the week. To lose weight, get at least 60 minutes of exercise. Talk to your healthcare provider about the best exercise program for you. Limit alcohol: Women should limit alcohol to 1 drink a day. Men should limit alcohol to 2 drinks a day. A drink of alcohol is 12 ounces of beer, 5 ounces of wine, or 1 ounces of liquor. 2016 [place]. Information is for End User's use only and may not be sold, redistributed or otherwise used for commercial purposes. All illustrations and images included in CareNotes are the copyrighted property of [employer]. or [employer]. The above information is an ed educational aide only. It is not intended as medical advice for individual conditions or treatments. Talk to your doctor, nurse or pharmacist before following any medical regimen to see if it is safe and effective for you. 1. Keep A blood pressure log - Take the blood pressure when you are relaxed 2. Blood work before office visit - to check on cholesterol Heart healthy lifestyle- Exercise- minimum of 40 min 4 x week- do some thing you like to do; strength and balance training Good night sleep - average person needs 8 hr Eat smart- watch cholesterol - dont overdo the carbs Smile!!!! Good spirit makes endorphins and all the rest work and worthwhile documented in this encounter Progress Notes Ary Zeng MD - 10/16/2019 9:40 AM EST PATIENT: Steph Gutierrez DATE: 10/16/2019 Steph Gutierrez is a 59-y.o. female presents for routine physical exam and Also , she has additional complaints of 1. Seeing [place] [place] for left lower quadrant abdominal pain - work up planned - 2. Blood pressure elevated - cks at home . Patient Active Problem List Diagnosis Hypertension Chest pain Dyslipidemia Lesion of right lower eyelid Nuclear sclerotic cataract of both eyes S/P bariatric surgery Acute pain of right knee Primary osteoarthritis of right knee Exercize yes ! No ROMANO. No cardiopulmonary symptoms as dyspnea, cough. palpitations, or chest pain onexertion. No upper or lower GI complaints as heartburn, abdominal pain, change in bowel habits, black or bloody stools. No urinary tract symptoms or incontinence. No symptoms as nocturia, discharge No bruising/ bleeding. No neurological complaints as dysphagia, imbalance, vertigo, focal weakness. No insomnia.+ Rested after nights sleep. No depression. Does not stop breathing at night. Current Outpatient Medications Medication Sig Bioflavonoid Products [...] No current facility-administered medications for this visit. Social History Socioeconomic History Marital status: Spouse [...] file Gets together: Not on file Attends buddhism service: Not on file Active member of [...] Not Asked Social History Narrative 2 children. 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 Pets: 2 dogs/3cats Family History Problem Relation Age of Onset [...] history Other Eye Problems No family history Results for orders placed or performed in visit on 10/09/19 UPPER GI ENDOSCOPY REPORT Result Value Ref Range Upper GI endoscopy [facility] - Tensed Patient Name: Steph Gutierrez Procedure Date: 10/09/2019 10:06 AM Date of : 1960 Admit Type: Outpatient Age: 59 Room: A1 Gender: Female Note Status: Finalized Attending MD: VASHTI HICKS MD Procedure: Upper GI endoscopy Indications: Generalized abdominal distress Providers: VASHTI HICKS MD, Karla Stacy, RN, Minnie Roberson (Throw Out Clerk) Referring MD: MARINA LEGGETT MD (Referring MD) Complications: No immediate complications. Medicines: Midazolam 5 mg IV, Meperidine 50 mg IV, Lidocaine spray, See Colonoscopy procedure note Procedure: The patient's current medications and allergies were reviewed and recorded in the nurses notes. The patient was made aware of the risk of the procedure which can include: bleeding, infection, perforation, an adverse reaction to sedation, and a risk of missed lesions, among others. The patient appeared to understand. An opportunity for questions was provided, and an informed consent form was signed. The scope was passed under direct vision. Throughout the procedure, the patient's blood pressure, pulse EKG, and oxygen saturations were monitored continuously. The Endoscope was introduced through the mouth, and advanced to the second part of duodenum. The upper GI endoscopy was accomplished without difficulty. The patient tolerated the procedure well. Requesting Provider: Findings: The examined portions of the nasopharynx, oropharynx and larynx were normal. The examined esophagus was normal. The examined duodenum was normal. The cardia and gastric fundus were normal on retroflexion. Sutures from sleeve gastrectomy. Impression: - The examined portions of the nasopharynx, oropharynx and larynx were normal. - Normal esophagus. - Normal examined duodenum. - No specimens collected. Recommendation: - Continue present medications. - Return to primary care physician PRN. - Telephone nurse practitioner for pathology results in 5 days. - The findings and recommendations were discussed with the patient and their designated, responsible adult. - Discharge patient to home. - Resume previous diet. Procedure Code(s): --- Professional --- 44185, Esophagogastroduodenoscopy, flexible, transoral; diagnostic, including collection of specimen(s) by brushing or washing, when performed (separate procedure) Diagnosis Code(s): --- Professional --- R10.84, Generalized abdominal pain CPT copyright 2017 [employer]. All rights reserved. The codes documented in this report are preliminary and upon correctional classification counselor review may be revised to meet current compliance requirements. VASHTI HICKS MD 10/09/2019 10:33:22 AM This report has been signed electronically. Number of Addenda: 0 Note Initiated On: 10/09/2019 10:06 AM CC Letter to: ARY ZENG MD (CC) Estimated Blood Loss: Estimated blood loss: none. COLONOSCOPY REPORT Result Value Ref Range GI Procedure [facility] - Tensed Patient Name: Steph Gutierrez Procedure Date: 10/09/2019 10:05 AM Date of : 1960 Admit Type: Outpatient Age: 59 Room: A1 Gender: Female Note Status: Finalized Attending MD: VASHTI HICKS MD Procedure: Colonoscopy Indications: Abdominal pain Providers: VASHTI HICKS MD, Karla Stacy, RN, Minnie Roberson (Throw Out Clerk) Referring MD: MARINA LEGGETT MD (Referring MD) Complications: No immediate complications. Medicines: See the other procedure note for documentation of the administered medications Procedure: The patient's current medications and allergies were reviewed and recorded in the nurses notes. The patient was made aware of the risk of the procedure which can include: bleeding, infection, perforation, an adverse reaction to sedation, and a risk of missed lesions, among others. The patient appeared to understand. An opportunity for questions was provided, and an informed consent form was signed. The scope was passed under direct vision. Throughout the procedure, the patient's blood pressure, pulse EKG, and oxygen saturations were monitored continuously. The Colonoscope was introduced through the anus and advanced to the cecum, identified by appendiceal orifice and ileocecal valve. The colonoscopy was performed without difficulty. The patient tolerated the procedure well. The quality of the bowel preparation was good. Requesting Provider: Findings: The perianal and digital rectal examinations were normal. A 3 mm polyp was found in the sigmoid colon. The polyp was sessile. The polyp was removed with a jumbo cold forceps. Resection and retrieval were complete. Verification of patient identification for the specimen was done by the physician and nurse using the patient's name and medical record number. Estimated blood loss was minimal. The retroflexed view of the distal rectum and anal verge was normal and showed no anal or rectal abnormalities. Moderate Sedation : Moderate (conscious) sedation was administered by the endoscopy nurse and supervised by the endoscopist. The following parameters were monitored: oxygen saturation, heart rate, blood pressure, and response to care. Total physician intraservice time was 26 minutes. Impression: - One 3 mm polyp in the sigmoid colon, removed with a jumbo cold forceps. Resected and retrieved. - The distal rectum and anal verge are normal on retroflexion view. Recommendation: - Discharge patient to home. - Resume previous diet. - Continue present medications. - Await pathology results. - Repeat colonoscopy in 5 years for surveillance based on pathology results. Procedure Code(s): --- Professional --- 42530, Colonoscopy, flexible; with biopsy, single or multiple G0500, Moderate sedation services provided by the same physician or other qualified health customer care manager performing a gastrointestinal endoscopic service that sedation supports, requiring the presence of an independent trained observer to assist in the monitoring of the patient's level of consciousness and physiological status; initial 15 minutes of intra-service time; patient age 5 years or older (additional time may be reported with 56576, as appropriate) 10426, Moderate sedation services provided by the same physician or other qualified health customer care manager performing the diagnostic or therapeutic service that the sedation supports, requiring the presence of an independent trained observer to assist in the monitoring of the patient's level of consciousness and physiological status; each additional 15 minutes intraservice time (List separately in addition to code for primary service) Diagnosis Code(s): --- Professional --- D12.5, Benign neoplasm of sigmoid colon R10.9, Unspecified abdominal pain CPT copyright 2017 [employer]. All rights reserved. The codes documented in this report are preliminary and upon correctional classification counselor review may be revised to meet current compliance requirements. VASHTI HICKS MD 10/09/2019 10:50:55 AM This report has been signed electronically. Number of Addenda: 0 Note Initiated On: 10/09/2019 10:05 AM CC Letter to: ARY ZENG MD (CC) Estimated Blood Loss: Estimated blood loss: none. TISSUE EXAM Result Value Ref Range Case Report Surgical Pathology Case: [id number] Authorizing Provider: Vashti Hicks MD Collected: 2019 10:45 AM Ordering Location: Tensed Received: 2019 11:22 AM Gastroenterology/Hepatolog y Pathologist: David Ramsay MD Specimen: colon, polyp, Colon, polyp sigmoid Clinical Information LLQ pain/ family hx colon cancer Pre-Op Diagnosis LLQ pain Family hx of colon cancer Post-Op Diagnosis Colon polyp FINAL DIAGNOSIS Colon, sigmoid, polyp; biopsy: - Hyperplastic polyp Microscopic Description Microscopic examination is performed. Gross Description 1. The specimen is received in formalin labeled, with the patient's name, MRN , and "Colon, polyp sigmoid". It consists of a parry-white soft tissue fragment that measures 0.5 x 0.3 x 0.1 cm. It is submitted entirely in cassette 1A. MPN Gross description is reviewed before signout by David Ramsay MD Disclaimer Gross description is performed at the [facility], [address] [facility] [place] [address]. All technical components are performed at the [facility], [address] [facility] [place] [address]. OBJECTIVE: BP 140/84 | Pulse 87 | Ht 5' 4" (1.626 m) | Wt 185 lb 4.8 oz (84.1 kg) | SpO2 94% | BMI 31.81 kg/m Gen well Heent: ears TM and canals normal eyes Perrl; EOMI oroph-wnl Neck- no JVD,thyromegaly, bruit or lymphademopathy No supraclavicular, axillary or inguinal lymphadenopathy Lungs-clear to auscultation CV RRR no Murmur, gallop or clilck Breasts-no masses or diimpling (examined supine and sitting) Abd. nontender; no organomegaly, abnormal pulsations , bowel sounds normoactive l - urethra/ vul/vag neg; cervix wnl; uterus wnl, adnexa-unable Rectal no mass heme- no stool ANus no path Ext-no edema; rash, DP +2 skin- no rashes or suspicious lesions Neuro- intellect intact; CN II.XII intact; U&LE-strength wnl gait nl A/P ICD-9-CM ICD-10-CM 1. Routine general medical examination at a health care facility V70.0 Z00.00 2. Chronic left-sided low back pain without sciatica 724.2 M54.5 338.29 G89.29 3. Encounter for screening for malignant neoplasm of breast V76.10 Z12.39 4. Encounter for gynecological examination V72.31 Z01.419 PAP SMEAR THINPREP AND HPV 5. Screening mammogram, encounter for .12 Z12.31 MAMMO SCREENING TOMOSYNTHESIS BILATERAL 6. Lipid disorder 272.9 E78.9 LIPID PROFILE MAMMO SCREENING TOMOSYNTHESIS BILATERAL 7. Elevated BP without diagnosis of hypertension 796.2 R03.0 Breast self-exam and bone health recommendations were made Chief Complaint Patient presents with Physical pap 04/26/14, mammo 11/11/17, dexa 05/25/16, colonoscopy 10/09/19 Hypertension Mammo-- Ordered Colon- Ordered DT Up to date PAP today DEXA Up to date Patient Instructions DASH Eating Plan WHAT YOU NEED TO KNOW: The DASH (Dietary Approaches to Stop Hypertension) Eating Plan is designed to help prevent or lower high blood pressure. It can also help to lower LDL (bad) cholesterol and decrease your risk of heart disease. The plan is low in sodium, sugar, unhealthy fats, and total fat. It is high in potassium, calcium, magnesium, and fiber. These nutrients are added when you eat more fruits, vegetables, and whole grains. DISCHARGE INSTRUCTIONS: How much sodium you should have each day: Your dietitian will tell you how much sodium you should have each day. People with high blood pressure should have 1,500 to 2,300 mg of sodium. How to limit sodium: Read food labels: Food labels can help you choose foods that are low in sodium. The amount of sodium is listed in milligrams. The % Daily Value (DV) column tells you how much of your daily needs are met by 1 serving of the food for each nutrient listed. Choose foods that have less than 5% of theDV of sodium. These foods are considered low in sodium. Foods that have 20% or more of the DV of sodium are considered high in sodium. Avoid foods that have more than 300 mg of sodium in each serving. Choose foods that say low-sodium, reduced -sodium, or no salt added on the food label. Avoid salt: Do not salt food at the table, and add very little salt to foods during cooking. Use herbs and spices, such as onions, garlic, and salt- free seasonings to add flavor to foods. Try lemon or turtle mountain juice or vinegar to give foods a tart flavor. Use hot peppers or a small amount of hot pepper sauce to add a spicy flavor to foods. Ask about salt substitutes: Ask your healthcare provider if you may use salt substitutes. Somesalt substitutes have ingredients that can be harmful to people with certain health conditions. Choose foods carefully at restaurants: Meals from restaurants, especially fast food restaurants, are often high in sodium. Some restaurants have nutrition information that tells you the amount ofsodium in their foods. Ask to have your food prepared with less, or no salt. What you should know about fats: Include healthy fats: Examples are unsaturated fats and omega-3 fatty acids. Unsaturated fats are found in soybean, canola, olive, or sunflower oil, and liquid and soft tub margarines. [place]-3 fatty acids are found in fatty fish , such as salmon, tuna, mackerel, and sardines. It is also found in flaxseed oil and ground flaxseed. Avoid unhealthy fats: Do not eat unhealthy fats, such as saturated fats and trans fats. Saturated fats are found in foods that contain fat from animals. Examples are fatty meats, whole milk, butter, cream, and other dairy foods. It is also found in shortening, butter, stick margarine, palm oil, and coconut oil. Trans fats are found in fried foods, crackers, chips, and baked goods made with margarine or shortening. Foods to include: With the DASH eating plan, you need to eat a certain number of servings from eachfood group. This will help you get enough of certain nutrients and limit others. The amount of servings you should eat depends on how many calories you need. Your dietitian can tell you how many calories you need. The number of servings listed next to the food groups below are for people who need about 2,000 calories each day. Grains: 6 to 8 servings (3 of these servings should be whole grain foods) 1 slice of whole-grain bread 1 ounce of dry cereal cup of cooked cereal, pasta, or brown rice Vegetables and fruit: 4 to 5 servings of fruits and 4 to 5 servings of vegetables 1 medium fruit cup of frozen, canned (no added salt), or chopped fresh vegetables cup of fresh, frozen, dried, or canned fruit (canned in light syrup or fruit juice) cup of vegetable or fruit juice Dairy: 2 to 3 servings 1 cup of nonfat (skim) or 1% milk 1 ounces of fat-free or low-fat cheese 6 ounces of nonfat or low-fat yogurt Lean mean, poultry, and fish: 6 ounces or less Poultry (chicken, turkey) with no skin Fish (especially fatty fish, such as salmon, fresh tuna, or mackerel) Lean beef and pork (loin, round, extra lean hamburger) Egg whites and egg substitutes Nuts, seeds, and legumes: 4 to 5 servings each week cup of cooked beans and peas 1 ounces of unsalted nuts 2 tablespoons of peanut butter or seeds Sweets and added sugars: 5 or less per week 1 tablespoon of sugar, jelly, or jam cup of sorbet or gelatin 1 cup of lemonade Foods to avoid: Grains: Baked goods, such as doughnuts, pastries, cookies, and biscuits (high in fat and sugar) Mixes for cornbread and biscuits, packaged foods, such as bread stuffing, rice and pasta mixes,macaroni and cheese, and instant cereals (high in sodium) Fruit and vegetables: Regular, canned vegetables (high in sodium) Sauerkraut, pickled vegetables, and other foods prepared in brine (high in sodium) Fried vegetables or vegetables in butter or high-fat sauces Fruit in cream or butter sauce (high in fat) Dairy: Whole milk, 2% milk, and cream (high in fat) Regular cheese and processed cheese (high in fat and sodium) Meats and protein foods: Smoked or cured meat, such as corned beef, david, ham, hot dogs, and sausage (high in fat and sodium) Canned beans and canned meats or spreads, such as potted meats, sardines, anchovies, and imitation seafood (high in sodium) Deli or lunch meats, such as bologna, ham, turkey, and roast beef (high in sodium) High-fat meat (T-bone steak, regular hamburger, and ribs) Whole eggs and egg yolks (high in fat) Other: Seasonings made with salt, such as garlic salt, celery salt, onion salt, seasoned salt, meat tenderizers, and monosodium glutamate (MSG) Miso soup and canned or dried soup mixes (high in sodium) Regular soy sauce, barbecue sauce, teriyaki sauce, steak sauce, Worcestershire sauce, and most flavored vinegars (high in sodium) Regular condiments, such as mustard, ketchup, and salad dressings (high in sodium) Gravy and sauces, such as Juan or cheese sauces (high in sodium and fat) Drinks high in sugar, such as soda or fruit drinks Snack foods, such as salted chips, popcorn, pretzels, pork rinds, salted crackers, and salted nuts Frozen foods, such as dinners, entrees, vegetables with sauces, and breaded meats (high in sodium) Other guidelines to follow: Maintain a healthy weight: Your risk of heart disease is higher if you are overweight. Your healthcare provider may suggest that you lose weight if you are overweight. You can lose weight by eating fewer calories and foods that have added sugars and fat. The DASH meal plan can help you do this. Decrease calories by eating smaller portions at each meal and fewer snacks. Ask your healthcare provider for more information about how to lose weight. Exercise regularly: Regular exercise can help you reach or maintain a healthy weight. Regular exercise can also help decrease your blood pressure and improve your cholesterol levels. Get 30 minutes or more of moderate exercise each day of the week. To lose weight, get at least 60 minutes of exercise. Talk to your healthcare provider about the best exercise program for you. Limit alcohol: Women should limit alcohol to 1 drink a day. Men should limit alcohol to 2 drinks a day. A drink of alcohol is 12 ounces of beer, 5 ounces of wine, or 1 ounces of liquor. 2016 [place]. Information is for End User's use only and may not be sold, redistributed or otherwise used for commercial purposes. All illustrations and images included in CareNotes are the copyrighted property of [employer]. or [employer]. The above information is an ed educational aide only. It is not intended as medical advice for individual conditions or treatments. Talk to your doctor, nurse or pharmacist before following any medical regimen to see if it is safe and effective for you. 1. Keep A blood pressure log - Take the blood pressure when you are relaxed 2. Blood work before office visit - to check on cholesterol Heart healthy lifestyle- Exercise- minimum of 40 min 4 x week- do some thing you like to do; strength and balance training Good night sleep - average person needs 8 hr Eat smart- watch cholesterol - dont overdo the carbs Smile!!!! Good spirit makes endorphins and all the rest work and worthwhile Author: rAy Zeng MD documented in this encounter Plan of Treatment Date Type Specialty Care Team Description 10/19/2019 IPPR Dental Isaiah Blood, [facility] [address] [id number] 05/02/2020 Ocular Visit Optometry Martha Bonds, OD [address] [id number] Name Type Priority Associated Diagnoses Order Schedule MAMMO SCREENING Imaging Routine Screening mammogram, Expected: TOMOSYNTHESIS BILATERAL encounter for 10/16/2019, Expires: 01/13/2021 PAP SMEAR THINPREP AND Lab Routine Encounter for Ordered: 10/16/2019 HPV gynecological examination LIPID PROFILE Lab Routine Lipid disorder Expected: 10/16/2019 (Approximate), Expires: 04/13/2020 MAMMO SCREENING Imaging Routine Lipid disorder Expected: TOMOSYNTHESIS BILATERAL 10/16/2019, Expires: 01/13/2021 Health Maintenance Due Date Last Done Comments [...] Progress Blood Pressure Blood Pressure 140/84 No Fifi, < 140/90 (10/16/2019 Marina Mckeon, 9:31 AM EST) Note: This is an individualized treatment (blood pressure) goal for Steph Ramsaymariela: Displayed above (on the left) is your goal for blood pressure control. Your most recent blood pressure is also shown above, on the right. You should try to achieve blood pressures that are lower than your goal listed above (on the left). Weight loss vs. 18 mo Lifestyle 0 (10/16/2019 9:31 AM Marina Brennan MD max (lbs) >= 10 EST) Note: This is an individualized lifestyle goal for Steph Ramsaymariela: Your body mass index (BMI) is more than 30. You should lose weight. A reasonable starting goal is to lose 10 pounds. Displayed above is how many pounds you have lost thus far towards your 10 pound weight loss goal. Take all prescribed medications as Self-management Marina Brennan MD directed Note: This is an individualized self-management goal for Steph Ramsaymariela: Please take all prescribed medications as directed. [...] filedocumented in this encounter Visit Diagnoses Diagnosis Routine general medical examination at a health care facility Chronic left-sided low back pain without sciatica Encounter for screening for malignant neoplasm of breast Encounter for gynecological examination Screening mammogram, encounter for Lipid disorder Unspecified disorder of lipoid metabolism Elevated BP without diagnosis of hypertension documented in this encounter Insurance Payer Benefit Plan / Subscriber ID Effective Dates Phone Address Type Group BCBS NATIONAL BCBS NATIONAL xxxxxxxxx 2017-[place] Blue t Cross/Blue Shield [place] xxxxxxxxx 2019-Prese nt documented as of this encounter
[2019-10-19 20:45] VITALS: BP 128/86
--- NOTE | 2019-10-19 21:00 | UC ---
Complaint Female HPI - HPI Summary HPI Summary: About 4:00 this afternoon she started with urgency, frequency and dysuria. She has had multiple UTIs in the past and thinks that's what's going on. She denies back pain or fever. - History Of Current Complaint Chief Complaint: UCGU Stated Complaint: UTI Time Seen by Provider: 10/19/19 20:47 Hx Obtained From: Patient Hx Last Menstrual Period: [employer] Onset/Duration: Sudden Onset Timing: Constant Severity Initially: Moderate Severity Currently: Moderate Pain Intensity: 0 Character: Burning Aggravating Factor(s): Urination Alleviating Factor(s): Nothing Associated Signs And Symptoms: Negative: Fever, Back Pain, Vaginal Discharge, Nausea, Vomiting(# Of Episodes =) - Allergies/Home Medications Allergies/Adverse Reactions: Allergies Allergy/AdvReac Type Severity Reaction Status Date / Time amoxicillin Allergy Intermediate Hives Verified 10/19/19 20:38 codeine Allergy Unknown Unknown Verified 10/19/19 20:38 Reaction Details Home Medications: Home Medications Hyoscyamine TAB* [Anaspaz 0.125 MG TAB*] 0.375 mg PO BID 10/19/19 [History Confirmed 10/19/19] PMH/Surg Hx/FS Hx/Imm Hx Previously Healthy: Yes - IBS Other History Of: Negative For: Hepatitis C, Anticoagulant Therapy - Surgical History Surgical History: Yes Surgery Procedure, Year, and Place: Attempted removal of foreign body (sewing machine needle) left upper thigh [facility]. bariatric surgery- 2016 [place], LT FOOT SESAMOID REMOVAL. left knee surgery, nasal surgery. R carpal tunnel - Family History Known Family History: Positive: Hypertension Negative: Diabetes, Renal Disease, Respiratory Disease, Seizure Disorder, Other - CVA, cance r - Social History Alcohol Use: Rare Alcohol Amount: 1 DRINK/MONTH Substance Use Type: None Smoking Status (MU): Former Smoker Amount Used/How Often: <1 PPD FOR 30 YRS Length of Time of Smoking/Using Tobacco: 30 YRS Have You Smoked in the Last Year: No When Did the Patient Quit Smoking/Using Tobacco: 2012 - Immunization History Most Recent Influenza Vaccination: unknown Review of Systems All Other Systems Reviewed And Are Negative: Yes Constitutional: Positive: Negative Skin: Positive: Negative ENT: Positive: Negative Respiratory: Positive: Negative Cardiovascular: Positive: Negative Gastrointestinal: Positive: Abdominal Pain - Suprapubic Genitourinary: Positive: Dysuria, Frequency, Urgency Physical Exam - Summary Physical Exam Summary: She is nontoxic in appearance with stable vitals Triage Information Reviewed: Yes Appearance: Well-Appearing, No Pain Distress Vital Signs: Initial Vital Signs Temp 98.5 F 10/19/19 20:40 Pulse 50 10/19/19 20:40 Resp 18 10/19/19 20:40 BP 128/86 10/19/19 20:40 Pulse Ox 96 10/19/19 20:40 Vital Signs Reviewed: Yes ENT Exam: Normal Respiratory Exam: Normal Cardiovascular Exam: Normal Abdominal Exam: Normal Bowel Sounds: Positive: Present Complaint Female Dx - Course Course Of Treatment: UA shows a likely infection. Culture results will be available in a couple of days. I will treat with Macrobid and Pyridium. - Differential Dx/Diagnosis Provider Diagnosis: UTI (urinary tract infection) Discharge ED - Sign-Out/Discharge Documenting (check all that apply): Patient Departure All imaging exams completed and their final reports reviewed: No Studies - Discharge Plan Condition: Stable Disposition: HOME Patient Education Materials: Urinary Tract Infection in Women (ED) Referrals: Jennifer Zeng MD [Primary Care Provider] - - Billing Disposition and Condition Condition: STABLE Disposition: Home
[2019-10-19] MEDS ORDERED: Nitrofurantoin Macrocrystals* 50 MG CAP PO ONE (21:01)
--- NOTE | 2019-10-21 14:47 | UC ---
- Progress Note Progress Note: Preliminary urine culture results reviewed, cuture positive for proteus mirabilus, patient currently on macrodantin (which is not sensitive for proteus mirabilus) . discussed results with Dr. Roselia Mccormikc. We will wait for sensitivity report tomorrow before changing med. Course/Dx - Diagnoses Provider Diagnoses: UTI (urinary tract infection) Discharge ED - Sign-Out/Discharge Documenting (check all that apply): Post-Discharge Follow Up All imaging exams completed and their final reports reviewed: No Studies - Discharge Plan Condition: Stable Disposition: HOME Prescriptions: Nitrofurantoin Monohyd/M-Cryst [Macrobid 100 mg Capsule] 100 mg PO BID #14 cap Patient Education Materials: Urinary Tract Infection in Women (ED) Referrals: Jennifer Zeng MD [Primary Care Provider] - - Billing Disposition and Condition Condition: STABLE Disposition: Home - Attestation Statements Provider Attestation: I was available for consult. This patient was seen by the GARY. The patient was not presented to, seen by, or examined by me. -Cassie
--- NOTE | 2019-10-22 14:30 | UC ---
- Progress Note Progress Note: Pt resistant to Macrobid, sensitive to Bactrim prescription sent please call pt - advise change recommend pro-biotic vs yogurt Course/Dx - Diagnoses Provider Diagnoses: UTI (urinary tract infection) Discharge ED - Sign-Out/Discharge Documenting (check all that apply): Post-Discharge Follow Up All imaging exams completed and their final reports reviewed: No Studies - Discharge Plan Condition: Stable Disposition: HOME Prescriptions: Nitrofurantoin Monohyd/M-Cryst [Macrobid 100 mg Capsule] 100 mg PO BID #14 cap Sulfamethox/Trimethoprim DS* [Bactrim DS 800/160 TAB*] 1 tab PO BID #14 tab Patient Education Materials: Urinary Tract Infection in Women (ED) Referrals: Jennifer Zeng MD [Primary Care Provider] - - Billing Disposition and Condition Condition: STABLE Disposition: Home
== END 2019-10-19 21:14 | disposition home or self-care (01) ==
LOC: UCEAST 20:32
DX: N39.0 Urinary tract infection, site not specified (principal); K58.9 Irritable bowel syndrome, unspecified; Z88.0 Allergy status to penicillin; Z88.5 Allergy status to narcotic agent; Z87.891 Personal history of nicotine dependence
CPT/HCPCS: 81003; 87077; 87086; 87186; 99212; A9270-GY; G0463

== ENCOUNTER 2019-11-04 17:07 | Emergency (ER) | payer BC, OTHER ==
[2019-11-04] MEDS ORDERED: Acetaminophen TAB* 325 MG PO ONE (17:40)
[2019-11-04] MEDS ORDERED: Ibuprofen TAB* 600 MG PO ONE (17:40)
--- NOTE | 2019-11-04 17:44 | ED ---
Adult Trauma - HPI Summary HPI Summary: 59 year old female presents to the ED with a chief complaint of right shoulder pain secondary to falling while running on a treadmill several hours ago. Pain is a 9/10 in severity. No LOC. Did not injure anything else. Patient has limited ROM in right arm 2/2 pain. History of HTN. She is not on any blood thinners. 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 Mechanism of Injury: Fall - Fall from treadmill Ambulatory at the Scene: Yes Loss of Consciousness: no loss of consciousness Onset of Pain: Immediate Onset Severity: Moderate Current Severity: Severe Pain Intensity: 9 Pain Scale Used: 0-10 Numeric Location: Extremities - Right shoulder Character: Sharp Aggravating Factor(s): Movement, Palpation Associated Signs & Symptoms: Negative: Loss of Consciousness - Allergy/Home Medications Allergies/Adverse Reactions: Allergies Allergy/AdvReac Type Severity Reaction Status Date / Time amoxicillin Allergy Intermediate Hives Verified 11/04/19 17:11 codeine Allergy Unknown Unknown Verified 11/04/19 17:11 Reaction Details Home Medications: Home Medications Biotin 5,000 mcg PO BEDTIME 11/04/19 [History Confirmed 11/04/19] PMH/Surg Hx/FS Hx/Imm Hx Endocrine/Hematology History: Denies: Hx Anticoagulant Therapy, Hx Bone Marrow Disease, Hx Diabetes, Hx Sickle Cell Disease, Hx Anemia Cardiovascular History: Reports: Hx Hypertension - ON MEDS Denies: Hx Pacemaker/ICD Respiratory History: Reports: Hx Sleep Apnea - 5 YR HX GI History: Reports: Other GI Disorders - GASTRIC SLEEVE 2016 Musculoskeletal History: Reports: Hx Arthritis - OSTEOARTHRITIS KNEES, Other Musculoskeletal History - RIGHT CTS Sensory History: Reports: Hx Contacts or Glasses - GLASSES Denies: Hx Cataracts, Hx Glaucoma, Hx Hearing Aid Opthamlomology History: Reports: Hx Contacts or Glasses - GLASSES Denies: Hx Cataracts, Hx Glaucoma Neurological History: Reports: Hx Migraine - OCCASIONAL Psychiatric History: Denies: Hx Panic Disorder - Surgical History Surgery Procedure, Year, and Place: Attempted removal of foreign body (sewing machine needle) left upper thigh [facility]. bariatric surgery- 2016 [place], LT FOOT SESAMOID REMOVAL. left knee surgery, nasal surgery. R carpal tunnel Hx Anesthesia Reactions: No Infectious Disease History: No Infectious Disease History: Denies: Traveled Outside the [place] in Last 30 Days - Family History Known Family History: Positive: Hypertension Negative: Diabetes, Renal Disease, Respiratory Disease, Seizure Disorder, Other - CVA, cance r - Social History Alcohol Use: Rare Alcohol Amount: 1 DRINK/MONTH Substance Use Type: Reports: None Smoking Status (MU): Former Smoker Amount Used/How Often: <1 PPD FOR 30 YRS Length of Time of Smoking/Using Tobacco: 30 YRS Have You Smoked in the Last Year: No Review of Systems Negative: Fever Positive: Arthralgia - Shoulder pain, Decreased ROM All Other Systems Reviewed And Are Negative: Yes Physical Exam - Summary Physical Exam Summary: Constitutional: Well-developed, Well-nourished, Alert. (-) Distressed Skin: Warm, Dry HENT: Normocephalic; Atraumatic Eyes: Conjunctiva normal Neck: Musculoskeletal ROM normal neck. (-) JVD, (-) Stridor, (-) Nuchal rigidity Cardio: Rhythm regular, rate normal, Heart sounds normal; Intact distal pulses; Radial pulses are 2+ and symmetric. (-) Murmur Pulmonary/Chest wall: Effort normal. (-) Respiratory distress, (-) Wheezes, (-) Rales. No clavicular or chest wall tenderness. Abd: Soft, (-) tenderness, (-) Distension, (-) Guarding, (-) Rebound Musculoskeletal: (-) Edema. Tenderness of the right humeral head. ROM limited secondary to pain. No tenderness of the distal humerus, elbow, or forearm/wrist or hand. Neuro: Alert, Oriented x3 Psych: Mood and affect Normal Triage Information Reviewed: Yes Vital Signs On Initial Exam: Initial Vitals Temp Pulse Resp BP Pulse Ox 98.4 F 81 18 147/99 96 11/04/19 17:08 11/04/19 17:08 11/04/19 17:08 11/04/19 17:08 11/04/19 17:08 Vital Signs Reviewed: Yes Procedures - Sedation Patient Received Moderate/Deep Sedation with Procedure: No Diagnostics - Vital Signs Vital Signs Temp Pulse Resp BP Pulse Ox 11/04/19 17:08 98.4 F 81 18 147/99 96 - Laboratory Lab Statement: Any lab studies that have been ordered have been reviewed, and results considered in the medical decision making process. - Radiology Shoulder XR Radiology Interpretation Completed By: ED Physician Summary of Radiographic Findings: Shoulder XR shows fracture of the greater tuberosity of the humeral head. Pending official read. An ED physician has reviewed and interpreted this scan. Adult Trauma Course/Dx - Course Course Of Treatment: 59 y/o F p/w R shoulder pain after fall onto shoulder. - VSS NAD. PE w TTP R humeral head. No distal tenderness. No elbow/wrist/hand tenderness. SILT. Full ROM wrist/hand. - XR w small humeral head fracture, pending official read. Placed on sling, given pain medication. Ortho follow up - Diagnoses Provider Diagnoses: Humeral head fracture, Fall Discharge ED - Sign-Out/Discharge Documenting (check all that apply): Patient Departure - discharge home - Discharge Plan Condition: Stable Disposition: HOME Prescriptions: oxyCODONE/Acetamin 5/325 MG* [Percocet 5/325 TAB*] 1 tab PO Q6H PRN 3 Days #12 tab MDD 4 PRN Reason: Pain Patient Education Materials: Arm Fracture in Adults (ED) Referrals: Adrian Ferrer MD [Medical Doctor] - Additional Instructions: You were seen in the emergency department for a fall and arm pain. You likely of a small fracture of your shoulder. Please wear your sling. Take Percocet for severe pain. Take Tylenol for mild or moderate pain. Do not drive while taking Percocet. Please follow up with orthopedics. If any studies were not completed at the time of discharge you will be called with the relevant results. Please follow up with your primary care doctor in next 2-3 days and return to emergency department for worsening pain, numbness or tingling of your hand or concerning symptoms. It was a pleasure taking care of you today. - Billing Disposition and Condition Condition: STABLE Disposition: Home - Attestation Statements Document Initiated by Allisonibmaura: Yes Documenting Scribe: Dharmesh Rodriguez Provider For Whom Gabriel is Documenting (Include Credential): Brittney Nolasco MD Scribe Attestation: Dharmesh Dong scribed for Brittney Nolasco MD on 11/04/19 at 1825. Scribe Documentation Reviewed: Yes Provider Attestation: The documentation as recorded by the Dharmesh lancaster accurately reflects the service I personally performed and the decisions made by me, Brittney Nolasco MD Status of Scribmaura Document: Viewed
[2019-11-04] MEDS ORDERED: oxyCODONE/Acetamin 5/325 MG* TAB PO ONE (18:18)
[2019-11-04 19:00] VITALS: BP 140/82
== END 2019-11-04 18:59 | disposition home or self-care (01) ==
LOC: ED 17:07
DX: S42.254A Nondisplaced fracture of greater tuberosity of right humerus, initial encounter for closed fracture (principal); W18.30XA Fall on same level, unspecified, initial encounter; Y93.A1 Activity, exercise machines primarily for cardiorespiratory conditioning; Y92.9 Unspecified place or not applicable; I10 Essential (primary) hypertension; Z88.5 Allergy status to narcotic agent; Z88.0 Allergy status to penicillin; Z87.891 Personal history of nicotine dependence
CPT/HCPCS: 99282; A9270-GY

== ENCOUNTER 2020-05-16 08:57 | Inpatient (IN) ==
[~2020-05-16 08:57] MED LIST changes: -Buffered Lidocaine 0.9% SYRIN* 5 ML/SYR SYRINGE INTRADERM ONE; +Buffered Lidocaine 1% SYRIN 1 ml INTRADERM ONE; -Dexamethasone IV* 4 MG/ML 1 ML (4 MG) IV SLOW PU ONE; -Dexamethasone IV* 4 MG/ML 1 ML (4 MG) ONE; -Famotidine IV* 10 MG/ML 2 ML (20 mg) IV ONE; -Famotidine IV* 10 MG/ML 2 ML (20 mg) ONE; -Lactated Ringers 1000 ML Bag* 1,000 ML IV SCH; +Lactated Ringers 1000 ml BAG 1,000 ML IV SCH
[2020-05-16] MEDS ORDERED: Propofol 10 MG/ML 20 ML BTL ONE (09:09)
[2020-05-16] MEDS ORDERED: Rocuronium 50 mg VIAL 10 mg/ml 5 ml VIAL (50 mg) ONE (09:10)
[2020-05-16] MEDS ORDERED: fentaNYL 250 mcg/5 ml 50 MCG/ML 5 ml VIAL (250 MCG) ONE (09:10)
[2020-05-16] MEDS ORDERED: Midazolam 2 mg/2 ml VIAL 1 mg/ml 2 ml VIAL (2 mg) ONE ×2 (09:10→11:59)
[2020-05-16] MEDS ORDERED: Buffered Lidocaine 1% SYRIN 1 ml INTRADERM ONE (09:15)
[2020-05-16] MEDS ORDERED: Clindamycin 900 MG/D5W BAG 900 MG/50 ML BAG IVPB ONE (09:15)
[2020-05-16] MEDS ORDERED: fentaNYL 100 mcg/2 ml 50 MCG/ML VIAL ONE ×2 (09:39→11:04)
[2020-05-16] MEDS ORDERED: ROPIVACAINE 5 MG/ML 30 ML BTL (0.5%) ONE ×2 (10:38→11:14)
[2020-05-16] MEDS ORDERED: Propofol 10 mg/ml 100 ML BTL 100 ML ONE (11:02)
[2020-05-16] MEDS ORDERED: Bupivacaine 0.5% SDV PF 30ML VIAL ONE (11:04)
[2020-05-16] MEDS ORDERED: Ondansetron 4 mg VIAL 2 MG/ML 2 ml VIAL ONE (13:13)
[2020-05-16] MEDS ORDERED: Dexamethasone IV 4 MG/ML VIAL 1 ml VIAL ONE (13:13)
[2020-05-16] MEDS ORDERED: Prochlorperazine 5 mg/ml 2 ml VIAL (10 mg) IV PRN (14:17)
[2020-05-16] MEDS ORDERED: Naloxone 0.4 mg VIAL 0.4 mg/ml 1 ml VIAL IV PRN (14:17)
[2020-05-16] MEDS ORDERED: HYDROmorphone 1 MG/1 ML SYRINGE IV PRN (14:17)
[2020-05-16] MEDS ORDERED: diPHENhydraMINE IV 50 MG/ML 1 ml VIAL (BENADRYL) IV PRN ×2 (14:17→14:29)
[2020-05-16] MEDS ORDERED: oxyCODONE/Acetamin 5/325 mg TAB PO PRN (14:29)
[2020-05-16] MEDS ORDERED: Lactulose 30 ml UDC PO PRN (14:29)
[2020-05-16] MEDS ORDERED: Magnesium Hydroxide LIQ 30 ML UDC PO PRN (14:29)
[2020-05-16] MEDS ORDERED: Ondansetron 4 mg VIAL 2 MG/ML 2 ml VIAL IV PRN (14:29)
[2020-05-16] MEDS ORDERED: Ondansetron ODT 4 mg TAB 4 MG TAB PO PRN (14:29)
[2020-05-16] MEDS ORDERED: Morphine 2 MG/ML SYRINGE IV PRN (14:29)
[2020-05-16] MEDS ORDERED: diPHENhydraMINE 25 mg TAB PO PRN (14:29)
[2020-05-16] MEDS ORDERED: Lactated Ringers 1000 ml BAG 1,000 ML IV SCH (15:00)
[2020-05-16] MEDS: oxyCODONE/Acetamin 5/325 mg TAB PO PRN ×2 (17:16→21:11)
[2020-05-16] MEDS: Clindamycin 600 MG/D5W BAG 600 MG/50 ML BAG IV SCH (20:04)
[2020-05-16] MEDS: Magnesium Hydroxide LIQ 30 ML UDC PO SCH (20:08)
[2020-05-17] MEDS ORDERED: Polyethylene Glycol 3350 17 GM PACKET PO PRN (00:01)
[2020-05-17] MEDS: oxyCODONE/Acetamin 5/325 mg TAB PO PRN ×2 (04:00→09:43)
[2020-05-17] MEDS: Clindamycin 600 MG/D5W BAG 600 MG/50 ML BAG IV SCH ×2 (04:01→11:56)
[2020-05-17 07:09] LABS: Hematocrit 33 % (35-47); Hemoglobin 11.5 g/dL (12.0-16.0); Mean Platelet Volume 8.5 fL (7.4-10.4); Platelet Count 196 10^3/uL (150-450)
[2020-05-17 07:20] LABS: BUN/Creatinine Ratio 21.6 (8-20); Calcium 8.6 mg/dL (8.6-10.3); EGFR African American 148.8 (>60); Potassium 3.9 mmol/L (3.5-5.0)
[2020-05-17] MEDS: Magnesium Hydroxide LIQ 30 ML UDC PO SCH (08:17)
[2020-05-17] MEDS ORDERED: Vitamin THERAPEUTIC TAB PO SCH (09:00)
[2020-05-17 11:34] VITALS: BP 154/85
== END 2020-05-17 13:00 | disposition home or self-care (01) | DRG 302 ==
LOC: AA 08:57 → SSU 14:29
PROVIDERS: ADMIT Orthopaedic Surgery Adult Reconstructive Orthopaedic Surgery; ATTEND Orthopaedic Surgery Adult Reconstructive Orthopaedic Surgery

== ENCOUNTER 2020-12-02 07:33 | Observation (INO) ==
[~2020-12-02 07:33] MED LIST changes: +Dexamethasone IV 4 MG/ML VIAL 1 ml VIAL IV SLOW PU ONE; +Famotidine IV 10 MG/ML 2 ml VIAL (20 mg) IV ONE
[2020-12-02] MEDS ORDERED: Dexamethasone IV 4 MG/ML VIAL 1 ml VIAL ONE (08:08)
[2020-12-02] MEDS ORDERED: ceFAZolin 2 GM PREMIX 2 GM/50 ML BAG ONE (08:09)
[2020-12-02] MEDS ORDERED: Famotidine IV 10 MG/ML 2 ml VIAL (20 mg) ONE (08:09)
[2020-12-02] MEDS ORDERED: Propofol 10 mg/ml 100 ML BTL 100 ML ONE (08:39)
[2020-12-02] MEDS ORDERED: ROPIVACAINE 5 MG/ML 30 ML BTL (0.5%) ONE ×2 (08:55→09:23)
[2020-12-02] MEDS ORDERED: fentaNYL 100 mcg/2 ml 50 MCG/ML VIAL ONE (08:57)
[2020-12-02] MEDS ORDERED: Midazolam 2 mg/2 ml VIAL 1 mg/ml 2 ml VIAL (2 mg) ONE ×2 (09:06→09:07)
[2020-12-02] MEDS ORDERED: Phenylephrine IV 10 MG/ML 1 ml VIAL ONE (09:07)
[2020-12-02] MEDS ORDERED: Ondansetron 4 mg VIAL 2 MG/ML 2 ml VIAL ONE (09:07)
[2020-12-02] MEDS ORDERED: Lidocaine 2% PF 5 ML VIAL ONE (09:07)
[2020-12-02] MEDS ORDERED: Ketamine HCL 50 mg/ml 10 ml VIAL (500 MG) ONE (09:08)
[2020-12-02] MEDS ORDERED: DiMENhydriNATE IV 50 mg/ml 1 ml VIAL IV PUSH PRN (09:33)
[2020-12-02] MEDS ORDERED: Naloxone 0.4 mg VIAL 0.4 mg/ml 1 ml VIAL IV PRN (09:33)
[2020-12-02] MEDS ORDERED: fentaNYL 100 mcg/2 ml 50 MCG/ML VIAL IV PRN (09:33)
[2020-12-02] MEDS ORDERED: diPHENhydraMINE IV 50 MG/ML 1 ml VIAL (BENADRYL) IV PRN (11:42)
[2020-12-02] MEDS ORDERED: Lactulose 30 ml UDC PO PRN (11:42)
[2020-12-02] MEDS ORDERED: Ondansetron ODT 4 mg TAB 4 MG TAB PO PRN (11:42)
[2020-12-02] MEDS ORDERED: Ondansetron 4 mg VIAL 2 MG/ML 2 ml VIAL IV PRN (11:42)
[2020-12-02] MEDS ORDERED: Morphine 2 MG/ML SYRINGE IV PRN (11:42)
[2020-12-02] MEDS ORDERED: Magnesium Hydroxide LIQ 30 ML UDC PO PRN (11:42)
[2020-12-02] MEDS ORDERED: diPHENhydraMINE 25 mg TAB PO PRN (11:42)
[2020-12-02] MEDS: HYDROmorphone 1 MG/1 ML SYRINGE IV PRN ×3 (13:02→13:39)
[2020-12-02] MEDS ORDERED: HYDROmorphone 1 MG/1 ML SYRINGE ONE (13:02)
[2020-12-02] MEDS ORDERED: DiMENhydriNATE IV 50 mg/ml 1 ml VIAL ONE (14:11)
[2020-12-02] MEDS: Lactated Ringers 1000 ml BAG 1,000 ML IV SCH (14:30)
[2020-12-02] MEDS: ceFAZolin 1 GM ADVAN 1 GM in NS 0.9% 50 ML 50 ML IVPB SCH (19:38)
[2020-12-02] MEDS: Magnesium Hydroxide LIQ 30 ML UDC PO SCH (20:50)
[2020-12-03] MEDS: Lactated Ringers 1000 ml BAG 1,000 ML IV SCH (00:43)
[2020-12-03] MEDS: ceFAZolin 1 GM ADVAN 1 GM in NS 0.9% 50 ML 50 ML IVPB SCH ×2 (03:25→11:17)
[2020-12-03 07:08] LABS: Hematocrit 35 % (35-47); Hemoglobin 11.8 g/dL (12.0-16.0); Mean Platelet Volume 8.3 fL (7.4-10.4); Platelet Count 213 10^3/uL (150-450)
[2020-12-03 07:23] LABS: BUN/Creatinine Ratio 17.9 (8-20); Calcium 8.7 mg/dL (8.6-10.3); EGFR African American 133.2 (>60); EGFR Non-African American 110.1 (>60); Potassium 3.9 mmol/L (3.5-5.0)
[2020-12-03] MEDS: Magnesium Hydroxide LIQ 30 ML UDC PO SCH (08:48)
[2020-12-03] MEDS ORDERED: Vitamin THERAPEUTIC TAB PO SCH (09:00)
[2020-12-03 11:10] VITALS: BP 160/79
== END 2020-12-03 13:05 | disposition home or self-care (01) ==
LOC: SSU 07:33 → OR 07:33 → EDSTATUS 13:00
PROVIDERS: ADMIT Orthopaedic Surgery Adult Reconstructive Orthopaedic Surgery; ATTEND Orthopaedic Surgery Adult Reconstructive Orthopaedic Surgery